=== PATIENT | female | born 1975 | race Caucasian/White ===

== ENCOUNTER 2017-11-14 07:14 | Day surgery (SDC) | payer MEDICARE, MEDICAID ==
[2017-11-14] MEDS ORDERED: Midazolam 1 MG/ML 2 ML SDV ONE (07:18)
[2017-11-14] MEDS ORDERED: fentaNYL 100 MCG/2 ML SDV ONE (07:18)
[2017-11-14] MEDS ORDERED: Propofol 200 MG/20 ML SDV ONE (07:18)
[2017-11-14] MEDS ORDERED: Dextrose 5%-Lactated Ringers 1,000 ML IV SCH (08:30)
[2017-11-14] MEDS ORDERED: Glycopyrrolate 0.2 MG/ML 2 ML SDV IVPUSH ONE (09:00)
[2017-11-14 11:16] VITALS: BP 128/84
--- NOTE | 2017-11-17 11:23 | OR ---
DATE OF PROCEDURE: 11/14/2017 PREOPERATIVE DIAGNOSIS: Substernal chest pain. POSTOPERATIVE DIAGNOSIS: Substernal chest pain associated with: 1. Small hiatal hernia with mild inflammation of esophagogastric junction. 2. Mild antral gastritis/duodenitis. OPERATIVE PROCEDURE: Esophagogastroduodenoscopy with: 1. Biopsies of esophagogastric junction with histologic evaluation. 2. Biopsies of antrum for CLOtest. ANESTHESIA: IV sedation. INDICATION FOR PROCEDURE: This is a 42-year-old presenting with some ongoing problems with substernal chest pain. Cardiac etiologies have been ruled out. The patient is to undergo an upper endoscopy at this time to see if there is anything in the way of upper GI findings to account for the patient's symptoms. Plan is to proceed with upper GI endoscopy with biopsies and/or dilation as indicated. Potential risks including bleeding and perforation were discussed, and the patient wishes to proceed. DETAILS OF PROCEDURE: The patient was taken to the operating room and placed in a left lateral decubitus position. IV sedation was administered, after which the upper GI endoscope was passed orally through the length of the esophagus into the stomach with retroflexion view of the fundus, thereafter through the pyloric channel and duodenum to the junction of the third and fourth portions. Findings included normal hypopharynx, larynx, and upper esophageal sphincter. At the EG junction, a small hiatal hernia was present. There was some quite mild inflammation present with the mucosa being slightly edematous and friable. No stricturing or gross evidence of neoplasia was seen within the stomach apart from the small hiatal hernia. The patient was noted to have a somewhat mild antral gastritis along with some reddening of the mucosa in patches within the duodenal bulb. No ulcers or erosions were seen in these areas, and at that point, the scope was then brought back into the antrum and biopsies obtained there for CLOtest for H. pylori. Multiple biopsies were obtained from the esophagogastric junction and sent for histologic evaluation. The scope was then withdrawn and the procedure concluded. The patient was taken to the recovery room in satisfactory condition. At this point, it would appear the patient does not have as much upper GI findings as would likely explain her symptoms. Given this, we will obtain a CCK-stimulated HIDA scan next week. In case the ultrasound is negative, we will see the patient after the HIDA scan has been completed, then develop a different plan from that point forward. Wilder Mccartney MD /[id number]
== END 2017-11-14 11:15 | disposition home or self-care (01) ==
LOC: JP.SDS 07:14
PROVIDERS: ATTEND Surgery
DX: K29.50 Unspecified chronic gastritis without bleeding (principal); K22.8 Other specified diseases of esophagus; K44.9 Diaphragmatic hernia without obstruction or gangrene; Z88.0 Allergy status to penicillin; Z88.8 Allergy status to other drugs, medicaments and biological substances; Z91.030 Bee allergy status
CPT/HCPCS: 43239; 87081; J2250; J2704; J3010; J7042; 88305; J3490

== ENCOUNTER 2017-12-02 05:22 | Day surgery (SDC) | payer MEDICARE, MEDICAID ==
[2017-12-02] MEDS ORDERED: Acetaminophen 500 MG Tab PO ONE (05:30)
[2017-12-02] MEDS ORDERED: Gabapentin 300 MG Cap PO ONE (05:30)
[2017-12-02] MEDS: Dextrose 5%-Lactated Ringers 1,000 ML IV SCH ×2 (06:17→18:42)
[2017-12-02] MEDS ORDERED: Bupivacaine 0.5%/EPINEPHrine 1:200,000 50 ML MDV ONE (06:52)
[2017-12-02] MEDS ORDERED: fentaNYL 250 MCG/5 ML SDV ONE ×2 (07:09→07:42)
[2017-12-02] MEDS ORDERED: Dexamethasone 4 MG/ML SDV ONE (07:10)
[2017-12-02] MEDS ORDERED: Ondansetron 4 MG/2 ML SDV ONE (07:10)
[2017-12-02] MEDS ORDERED: Succinylcholine 200 MG/10 ML MDV ONE (07:10)
[2017-12-02] MEDS ORDERED: Propofol 200 MG/20 ML SDV ONE (07:10)
[2017-12-02] MEDS ORDERED: Neostigmine Methylsulfate 1 MG/ML 5 ML Syringe ONE (07:10)
[2017-12-02] MEDS ORDERED: Rocuronium 50 MG/5 ML Vial ONE (07:10)
[2017-12-02] MEDS ORDERED: Glycopyrrolate 0.2 MG/ML 5 ML MDV ONE (07:10)
[2017-12-02] MEDS ORDERED: Ketamine 500 MG/5 ML MDV IV SCH (07:30)
[2017-12-02] MEDS ORDERED: HYDROmorphone/Normal Saline 15 MG/30 ML PCA IV PRN (08:15)
[2017-12-02] MEDS ORDERED: Naloxone 0.4 MG/ML SDV IV PRN (08:18)
[2017-12-02] MEDS ORDERED: Insulin Aspart 100 Units/ML 3 ML Pen SUBCUT ONE (08:45)
[2017-12-02] MEDS: Ondansetron 4 MG/2 ML SDV IVPUSH PRN ×4 (09:33→22:24)
[2017-12-02] MEDS ORDERED: 50% Dextrose in Water 50 ML Syringe IVPUSH PRN (09:49)
[2017-12-02] MEDS ORDERED: Glucose Gel 15 GM in 37.5 GM Tube PO PRN (09:49)
[2017-12-02] MEDS ORDERED: Glucagon,Human Recombinant 1 MG Vial IM PRN (09:49)
[2017-12-02] MEDS ORDERED: Acetaminophen/HYDROcodone 325-5 MG Tab PO PRN (09:50)
[2017-12-02] MEDS ORDERED: Cyclobenzaprine 10 MG Tab PO PRN (09:51)
[2017-12-02] MEDS: Levofloxacin/Dextrose 5%-Water 500 MG in Premix Bag 1 BAG IV ONE ×2 (10:13→11:05)
[2017-12-02] MEDS ORDERED: Pantoprazole 40 MG Vial IV SCH (11:00)
[2017-12-02] MEDS: Insulin Aspart 100 Units/ML 3 ML Pen SUBCUT PRN ×3 (11:45→22:15)
[2017-12-02] MEDS: buPROPion 150 MG Tab.ER PO SCH (11:46)
[2017-12-02] MEDS: Gabapentin 300 MG Cap PO SCH ×2 (14:02→22:14)
[2017-12-02] MEDS: metFORMIN 500 MG Tab.ER PO SCH (17:03)
[2017-12-02] MEDS ORDERED: Codeine/guaiFENesin 100mg-10 MG/5 ML Syrup 10 ML Cup PO PRN (20:23)
[2017-12-02] MEDS: Metoclopramide 10 MG/2 ML SDV IV SCH (20:40)
[2017-12-02] MEDS ORDERED: Non-Formulary Medication 1 Each (Metformin Hcl [Metformin Hcl Er] 500 MG) PO SCH (21:00)
[2017-12-03] MEDS: Acetaminophen/HYDROcodone 325-5 MG Tab PO PRN ×2 (02:39→07:21)
[2017-12-03] MEDS: Metoclopramide 10 MG/2 ML SDV IV SCH ×2 (02:39→08:45)
[2017-12-03] MEDS: Dextrose 5%-Lactated Ringers 1,000 ML IV SCH (04:46)
[2017-12-03] MEDS ORDERED: Levofloxacin/Dextrose 5%-Water 500 MG in Premix Bag 1 BAG IV SCH (06:00)
[2017-12-03 07:12] VITALS: BP 120/66
[2017-12-03] MEDS ORDERED: Ondansetron 4 MG Tab.DIS PO PRN (07:44)
[2017-12-03] MEDS: Gabapentin 300 MG Cap PO SCH (08:44)
[2017-12-03] MEDS: metFORMIN 500 MG Tab.ER PO SCH (08:44)
[2017-12-03] MEDS: buPROPion 150 MG Tab.ER PO SCH (08:45)
--- NOTE | 2017-12-03 11:21 | DISCH ---
ADMISSION DIAGNOSES: Cholelithiasis, obesity, gastroesophageal reflux disease, type 2 diabetes, obstructive sleep apnea on CPAP, dyslipidemia, depression and low back pain. DISCHARGE DIAGNOSES: Laparoscopic cholecystectomy, umbilical hernia repair, liver biopsy and biopsy of pericholecystic lymph nodes for biliary dyskinesia, fatty infiltrated liver, enlarged pericholecystic lymph nodes and umbilical hernia. Date of surgery 12/02/2017. HISTORY: Judith Hugo is a 42-year-old female with cholelithiasis and epigastric and right upper quadrant abdominal pain. After preoperative evaluation and discussion of possible risks and possible complications, she wished to proceed with surgical procedure. HOSPITAL COURSE: Judith had her surgery on 12/02/2017. She had no operative complications. On postop day 1, vital signs were stable, activity was good, and she was able to be discharged to home. PHYSICAL EXAMINATION: GENERAL: Judith Hugo is a pleasant 42-year-old female. VITAL SIGNS: Height is 5 feet 1 inch. Weight is 233 pounds. TPR is 98.3, 81, 16, blood pressure 120/66. HEENT: Negative. NECK: Supple. HEART: Regular rate and rhythm. LUNGS: Clear. ABDOMEN: Dressings dry and intact. HAL drain is draining a light pink serosanguineous drainage. This will be removed prior to discharge. Abdominal binder otherwise has been on. EXTREMITIES: SCDs are on. There is no peripheral edema. DISPOSITION: Discharged to home. CONDITION: Stable and improving. FOLLOWUP APPOINTMENTS: Lexy Parra PA-C, on 12/12/2017 at 10:00 a.m. HOME MEDICATIONS: [place] 5/325 mg 1-2 oral q.4 hours p.r.n. pain #40, milk of magnesia 30 mL 2 doses were sent home to take 1 now and repeat in a.m., Zofran ODT 4 mg sublingual q.4 hours p.r.n. nausea #30. She is to resume her home medications of Flexeril 10 mg 3 times a day for muscle spasms, Neurontin 600 mg oral daily, meloxicam 15 mg oral daily, naproxen 500 mg oral twice daily, omeprazole 20 mg twice daily, Zocor 5 mg oral at bedtime, bupropion, Wellbutrin XL 150 mg oral daily, glipizide 5 mg oral daily, hydroxyzine 25 mg oral 3 times a day p.r.n. anxiety, metformin 500 mg oral twice daily. DISCHARGE DIET: Usual diet as tolerated. Drink 8 to 10 glasses of water a day. ACTIVITY: After discharge as tolerated. No lifting greater than 10 pounds for 2 weeks[address]riving, do not drive on pain medication. Shower/bathing, may shower. DISCHARGE INSTRUCTIONS: Notify provider of fever, increased pain, nausea, or vomiting. Wound incision care, keep site clean and dry. Wear abdominal binder for 2 weeks and then as tolerated. Special instruction; use incentive spirometer 10 times every hour while awake.
--- NOTE | 2017-12-07 01:28 | OR ---
DATE OF PROCEDURE: 12/02/2017 PREOPERATIVE DIAGNOSIS: Biliary dyskinesia. POSTOPERATIVE DIAGNOSES: 1. Biliary dyskinesia. 2. Fatty infiltrated liver. 3. Large pericholecystic lymph node. 4. Umbilical hernia. PROCEDURE: Diagnostic laparoscopy with: 1. Laparoscopic cholecystectomy (50952). 2. Umbilical hernia repair (47025). 3. Low-Cut needle liver biopsy (29402). 4. Biopsies of peritoneal nodule adjacent to the gallbladder (likely a lymph node) (36121). ANESTHESIA: General. ASSISTANTS: Lexy Parra PA-C; and HITESH Yuan3. INDICATIONS: This is a 42-year-old female presenting with recurrent problems with epigastric and generalized upper abdominal pain radiating to the back, generally in the postprandial period. The patient underwent a CCK-stimulated HIDA scan last week, which showed a below-normal ejection fraction as well as causing reproduction of the symptoms with the CCK injection. Plan is to proceed with a laparoscopic cholecystectomy. Potential risks of the procedure including bleeding, infection, injury to the underlying viscera such as common bile duct, persistent symptoms postoperatively along with the remote possibility of cardiopulmonary, septic, or hemorrhagic complications leading to were discussed, and the patient wishes to proceed. DETAILS OF PROCEDURE: The patient was taken to the operating room, and after general endotracheal anesthesia was induced, the abdomen was prepped and draped. A transverse epigastric incision was made. The peritoneal cavity entered under direct vision with the Optiview trocar and inflated to 15 mmHg pressure with CO2. Laparoscope was then re- inserted. No underlying trocar insertion site injuries were seen. Following this, a 12 mm subumbilical trocar was placed. The patient was noted to have roughly 1 cm size umbilical hernia, and the trocar was easily passed through the center of the hernia to facilitate subsequent repair. The scope was then brought down into the subumbilical trocar site, and a single 5 mm right abdominal trocar was then placed. With the liver being retracted anteriorly, the gallbladder was then grasped. The patient was noted to have a nodular lesion in the peritoneal surface adjacent to the gallbladder, which likely appeared to be lymph node. But to rule out other pathology, this nodular lesion was excised. This measured around 1 cm in dimension. This was excised with Harmonic scalpel and delivered from the field. At this point, the patient was also noted to have a fatty liver which was suggested on the previous imaging, and to establish the extent of the pathology, Low-Cut needle biopsies obtained from the right lobe of the liver, and minimal bleeding from the biopsy site was controlled with electrocautery. At this point, the gallbladder was retracted anterolaterally. The gallbladder was distended and somewhat puentes in color, consistent with some chronic cholecystitis. There was also a fair bit of edema and thickening in the area of the gallbladder neck and cystohepatic triangle. Dissection began on the gallbladder neck and continued around the gallbladder neck cystic duct junction. Once that area was well delineated as was the adjacent cystic artery, both structures were clipped 3 times proximally and once distally and divided. The gallbladder was then dissected off the gallbladder bed using Harmonic scalpel and delivered through the epigastric trocar site. Inspection of the gallbladder field showed some sludge along with a cholesterolosis appearance of the gallbladder mucosa. At this point, no bleeding or bile leaks were seen. A drain was felt not to be necessary. The epigastric trocar then was used once again for the camera port, and the port at the umbilical site removed. The umbilical hernia was then closed at that level with passage of the 0 Vicryl sutures with laparoscopic suture passer orienting the closure in a transverse direction. Once these were in place, the remaining trocars were removed, and the peritoneal cavity was deflated. The fascia at the epigastric site was closed with 0 Vicryl stitch and the umbilical hernia site sutures were then tied. The skin at each of the incisions was then closed with some 4-0 Vicryl skin stitch. Dressing was applied. The patient was taken to the recovery room in satisfactory condition. There were no evident complications. Physician campaign assistant, Lexy Parra, played an essential role in assisting in this case, helping to position the patient, retract structures as needed, as well as suturing and cutting sutures when indicated. Her presence improved the patient's safety and decreased the operative time. Wilder Mccartney MD /[id number]
== END 2017-12-03 10:34 | disposition home or self-care (01) ==
LOC: JP.SDS 05:22 → JP.2SS 08:20 → JP.SDS 12-03 10:34
PROVIDERS: ATTEND Surgery
DX: K81.1 Chronic cholecystitis (principal); K76.0 Fatty (change of) liver, not elsewhere classified; G47.33 Obstructive sleep apnea (adult) (pediatric); F32.9 Major depressive disorder, single episode, unspecified; E11.9 Type 2 diabetes mellitus without complications; E66.01 Morbid (severe) obesity due to excess calories; K21.9 Gastro-esophageal reflux disease without esophagitis; E78.5 Hyperlipidemia, unspecified; Z88.0 Allergy status to penicillin; Z91.030 Bee allergy status; Z88.8 Allergy status to other drugs, medicaments and biological substances; Z99.89 Dependence on other enabling machines and devices; Z79.84 Long term (current) use of oral hypoglycemic drugs; Z79.899 Other long term (current) drug therapy; Z68.41 Body mass index [BMI] 40.0-44.9, adult
CPT/HCPCS: 12011; 36415; 38589; 47001; 47562; 49652; 80053; 82247; 82962; 83735; 84075; 84100; 85027; 88304; 88305; 88307; 88313; 94762; A9270; C9113; J0330; J1100; J1170; J1956; J2405; J2704; J2710; J2765; J3010; J7030; J7042

== ENCOUNTER 2017-12-07 23:47 | Emergency (ER) | payer MEDICARE, MEDICAID ==
[2017-12-08] MEDS ORDERED: HYDROmorphone 0.5 MG/0.5 ML Syringe IVPUSH ONE ×2 (00:03→02:05)
--- NOTE | 2017-12-08 00:29 | EDM.PDOC ---
ED HPI GENERAL MEDICAL PROBLEM - General Chief Complaint: Abdominal Pain Stated Complaint: PAIN AFTER SURGERY 12/02/17 Time Seen by Provider: 12/08/17 00:24 Source of Information: Reports: Patient, Family History Limitations: Reports: No Limitations - History of Present Illness INITIAL COMMENTS - FREE TEXT/NARRATIVE: 42-year-old patient who had a cholecystectomy and hernia repair 5 days ago was discharged from the hospital the day after surgery. She had been doing well but had a sudden increase in pain this afternoon to the point where she was frantic , miserable, had pleuritic pain in the right abdomen with breathing and the pain was uncontrolled with her oral pain medications. No fevers or chills. Her bowels are moving. Onset: Gradual Location: Reports: Abdomen Quality: Reports: Sharp, Other (Cramping, pressure) Severity: Severe Associated Symptoms: Denies: Chest Pain, Cough, Shortness of Breath (Although she has pleuritic pain with breathing) Abdominal Pain Score (Numeric/FACES): 8 - Related Data Allergies Allergy/AdvReac Type Severity Reaction Status Date / Time bee venom protein (honey bee) Allergy Anaphylactic Verified 12/02/17 06:21 Shock Penicillins Allergy Rash Verified 12/02/17 06:21 [facility] AdvReac Stomach Verified 12/02/17 06:21 Upset Home Meds: Home Meds Gabapentin [Neurontin] 600 mg PO DAILY 11/02/16 [History] Omeprazole 20 mg PO BID 11/02/16 [History] Simvastatin [Zocor] 5 mg PO BEDTIME 11/02/16 [History] buPROPion HCl [Wellbutrin Xl] 150 mg PO DAILY 11/02/16 [History] Cyclobenzaprine HCl 10 mg PO TID PRN 10/28/17 [History] Meloxicam 15 mg PO DAILY 10/28/17 [History] Naproxen 500 mg PO BID 10/28/17 [History] Ondansetron [Zofran] 4 mg PO Q8H PRN 10/28/17 [History] glipiZIDE [Glipizide ER] 5 mg PO DAILY 10/28/17 [History] hydrOXYzine Pamoate [Hydroxyzine Pamoate] 25 mg PO TID PRN 10/28/17 [History] metFORMIN HCl [Metformin HCl ER] 500 mg PO BID 12/02/17 [History] Acetaminophen/HYDROcodone [[place] 325-5 MG] 1 - 2 tab PO Q4H PRN #40 tablet 12/03 [Rx] Magnesium Hydroxide [Milk of Magnesia] 30 ml PO DAILY PRN #2 ml 12/03/17 [Rx] Ondansetron [Zofran ODT] 4 mg PO Q4H PRN #30 tab.dis 12/03/17 [Rx] Past Medical History HEENT History: Reports: Impaired Vision Cardiovascular History: Reports: High Cholesterol Respiratory History: Reports: Asthma, Sleep Apnea Gastrointestinal History: Reports: GERD Genitourinary History: Reports: Renal Calculus Musculoskeletal History: Reports: Back Pain, Chronic, Osteoarthritis Neurological History: Reports: Head Trauma Psychiatric History: Reports: Anxiety, Depression Endocrine/Metabolic History: Reports: Diabetes, Type II, Obesity/BMI 30+ - Infectious Disease History Infectious Disease History: Reports: Chicken Pox, Measles - Past Surgical History HEENT Surgical History: Reports: None Cardiovascular Surgical History: Reports: None Respiratory Surgical History: Reports: None GI Surgical History: Reports: Appendectomy, Cholecystectomy, Hernia, Abdominal Female Surgical History: Reports: Lithotripsy/ESWL Endocrine Surgical History: Reports: None Neurological Surgical History: Reports: None Musculoskeletal Surgical History: Reports: Arthroscopic Knee Social & Family History - Family History Family Medical History: Noncontributory - Tobacco Use Smoking Status *Q: Former Smoker Years of Tobacco use: 20 Packs/Tins Daily: 1 Used Tobacco, but Quit: Yes Month Tobacco Last Used: 1992 Second Hand Smoke Exposure: No - Caffeine Use Caffeine Use: Reports: Coffee, Soda Other Caffeine Use: 2 cups - Alcohol Use Days Per Week of Alcohol Use: 0 - Recreational Drug Use Recreational Drug Use: No ED ROS GENERAL - Review of Systems Review Of Systems: See Below Constitutional: Denies: Fever, Chills HEENT: Reports: No Symptoms Respiratory: Reports: Pleuritic Chest Pain GI/Abdominal: Reports: Abdominal Pain. Denies: Constipation, Vomiting Skin: Reports: No Symptoms Neurological: Reports: No Symptoms ED EXAM, GI/ABD - Physical Exam Exam: See Below Exam Limited By: No Limitations General Appearance: Alert, Moderate Distress Eyes: Bilateral: Normal Appearance (No jaundice) Respiratory/Chest: No Respiratory Distress, Lungs Clear Cardiovascular: Regular Rate, Rhythm GI/Abdominal Exam: Normal Bowel Sounds, Soft, Other (Tender with palpation in the right upper quadrant, incisions look excellent) Neurological: Alert, Oriented Psychiatric: Anxious Skin Exam: Warm, Dry Course - Vital Signs Last Recorded V/S: Last Vital Signs Temp 97.3 F 12/07/17 23:53 Pulse 83 12/08/17 01:46 Resp 18 12/08/17 01:46 BP 149/80 H 12/08/17 01:46 Pulse Ox 97 12/08/17 01:46 - Orders/Labs/Meds Orders: Active Orders 24 hr Category Date Time Status Abdomen Pelvis w Cont [CT] Stat Exams 12/08/17 00:32 Taken Labs: Laboratory Tests 12/08/17 12/08/17 Range/Units 00:10 00:10 WBC 9.6 (4.5-11.0) K/uL RBC 4.43 (3.30-5.50) M/uL Hgb 12.3 (12.0-15.0) g/dL Hct 36.6 (36.0-48.0) % MCV 83 (80-98) fL MCH 28 (27-31) pg MCHC 34 (32-36) % Plt Count 293 (150-400) K/uL Neut % (Auto) 66 (36-66) % Lymph % (Auto) 25 (24-44) % [place] % (Auto) 6 (2-6) % Eos % (Auto) 2 (2-4) % Baso % (Auto) 0 (0-1) % Sodium 141 (140-148) mmol/L Potassium 4.3 (3.6-5.2) mmol/L Chloride 103 (100-108) mmol/L Carbon Dioxide 28 (21-32) mmol/L Anion Gap 10.4 (5.0-14.0) mmol/L BUN 8 D (7-18) mg/dL Creatinine 0.8 (0.6-1.0) mg/dL Est Cr Clr Drug Dosing 71.71 mL/min Estimated GFR (MDRD) > 60 (>60) Glucose 132 H (74-106) mg/dL Calcium 9.1 (8.5-10.1) mg/dL Total Bilirubin 0.4 (0.2-1.0) mg/dL AST 17 (15-37) U/L ALT 22 (12-78) U/L Alkaline Phosphatase 110 (46-116) U/L Total Protein 6.6 (6.4-8.2) g/dL Albumin 3.0 L (3.4-5.0) g/dL Globulin 3.6 H (2.3-3.5) g/dL Albumin/Globulin Ratio 0.8 L (1.2-2.2) Meds: Medications Discontinued Medications Generic Name Dose Route Start Last Admin Trade Name Yarely PRN Reason Stop Dose Admin Hydromorphone HCl 0.5 mg 12/08/17 00:03 12/08/17 00:17 Dilaudid IVPUSH 12/08/17 00:04 0.5 mg ONETIME ONE Administration Hydromorphone HCl 0.5 mg 12/08/17 02:05 12/08/17 02:21 Dilaudid IVPUSH 12/08/17 02:06 0.5 mg ONETIME ONE Administration Sodium Chloride 1,000 mls @ 500 mls/hr 12/08/17 00:45 12/08/17 01:03 Normal Saline IV 500 mls/hr ASDIRECTED MANFRED Administration Sodium Chloride 85 mls @ 4 mls/sec 12/08/17 00:39 12/08/17 00:53 Normal Saline IV 12/08/17 00:40 4 mls/sec ASDIRECTED STA Administration Iopamidol 150 ml 12/08/17 00:39 12/08/17 00:53 Isovue-300 (61%) IV 12/08/17 00:40 150 ml . DIRECTED STA Administration - Re-Assessments/Exams Free Text/Narrative Re-Assessment/Exam: 12/08/17 00:31 An IV was started and the patient was given 0.5 mg of Dilaudid IV. This markedly reduced her pain. CBC and CMP were obtained with the intention of an IV contrast enhanced abdomen and pelvis CT. 12/08/17 01:13 Over the course of the next hour her pain continued to improve and almost resolved completely. CBC and CMP were normal. 12/08/17 02:14 CT scan was also negative except for normal postoperative changes. The hydrocodone was discarded and a prescription for 20 2 mg Dilaudid's along with 20 10 mg Flexeril pills were given to the patient which she will fill tomorrow. She has a follow-up appointment with surgery next week, she can return sooner if worsening. Departure - Departure Time of Disposition: 02:41 Disposition: Home, Self-Care 01 Condition: Good Clinical Impression: Abdominal pain Qualifiers: Abdominal location: right upper quadrant Qualified Code(s): R10.11 - Right upper quadrant pain - Discharge Information Instructions: Abdominal Pain, Adult, [id number] Referrals: Houston Ram PA-C [Primary Care Provider] - Forms: ED Department Discharge Care Plan Goals: Fill prescriptions and use as prescribed if needed. Follow up with surgery as scheduled or return to ER sooner if worsening despite treatment with medication. - My Orders Last 24 Hours: My Active Orders 12/08/17 00:32 Abdomen Pelvis w Cont [CT] Stat - Assessment/Plan Last 24 Hours: My Active Orders 12/08/17 00:32 Abdomen Pelvis w Cont [CT] Stat
[2017-12-08] MEDS ORDERED: Iopamidol 612 MG/ML 150 ML Bottle IV STA (00:39)
[2017-12-08] MEDS ORDERED: Sodium Chloride 0.9% 1,000 ML IV SCH (00:45)
[2017-12-08 01:46] VITALS: BP 149/80
== END 2017-12-08 02:44 | disposition home or self-care (01) ==
LOC: JP.ED 23:47
DX: R10.11 Right upper quadrant pain (principal); E11.9 Type 2 diabetes mellitus without complications; E66.9 Obesity, unspecified; E78.00 Pure hypercholesterolemia, unspecified; Z87.891 Personal history of nicotine dependence; Z88.8 Allergy status to other drugs, medicaments and biological substances; Z88.0 Allergy status to penicillin; Z91.030 Bee allergy status; Z79.899 Other long term (current) drug therapy; Z79.84 Long term (current) use of oral hypoglycemic drugs
CPT/HCPCS: 36415; 74177; 80053; 85025; 96361; 96374; 96376; 99284; J1170; J7030; J7040

== ENCOUNTER 2018-07-10 21:34 | Emergency (ER) | payer MEDICARE, MEDICAID ==
[2018-07-10 21:57] VITALS: BP 209/103
--- NOTE | 2018-07-10 23:12 | EDM.PDOC ---
ED HPI GENERAL MEDICAL PROBLEM - General Chief Complaint: General Stated Complaint: PAIN AROUND HERNIA AREA Time Seen by Provider: 07/10/18 22:21 Source of Information: Reports: Patient History Limitations: Reports: No Limitations - History of Present Illness INITIAL COMMENTS - FREE TEXT/NARRATIVE: this lady has had pain around the umbilicus for the past year ever since umbilical hernia repair. Gradually worse. today sharp pain associated with movement. Vomited once 2 days ago. NOne today. Abdominal Pain Score (Numeric/FACES): 6 - Related Data Allergies Allergy/AdvReac Type Severity Reaction Status Date / Time bee venom protein (honey bee) Allergy Anaphylactic Verified 12/02/17 06:21 Shock Penicillins Allergy Rash Verified 12/02/17 06:21 dulaglutide [From [facility]ul[facility]] AdvReac Stomach Verified 12/02/17 06:21 Upset Home Meds: Home Meds Gabapentin [Neurontin] 600 mg PO DAILY 11/02/16 [History] Omeprazole 20 mg PO BID 11/02/16 [History] Simvastatin [Zocor] 5 mg PO BEDTIME 11/02/16 [History] buPROPion HCl [Wellbutrin Xl] 150 mg PO DAILY 11/02/16 [History] Cyclobenzaprine HCl 10 mg PO TID PRN 10/28/17 [History] Meloxicam 15 mg PO DAILY 10/28/17 [History] Naproxen 500 mg PO BID 10/28/17 [History] Ondansetron [Zofran] 4 mg PO Q8H PRN 10/28/17 [History] glipiZIDE [Glipizide ER] 5 mg PO DAILY 10/28/17 [History] hydrOXYzine pamoate [Hydroxyzine Pamoate] 25 mg PO TID PRN 10/28/17 [History] metFORMIN HCl [Metformin HCl ER] 500 mg PO BID 12/02/17 [History] Acetaminophen/HYDROcodone [[place] 325-5 MG] 1 - 2 tab PO Q4H PRN #40 tablet 12/03 [Rx] Magnesium Hydroxide [Milk of Magnesia] 30 ml PO DAILY PRN #2 ml 12/03/17 [Rx] Ondansetron [Zofran ODT] 4 mg PO Q4H PRN #30 tab.dis 12/03/17 [Rx] Past Medical History HEENT History: Reports: Impaired Vision Cardiovascular History: Reports: High Cholesterol Respiratory History: Reports: Asthma, Sleep Apnea Gastrointestinal History: Reports: GERD Genitourinary History: Reports: Renal Calculus Musculoskeletal History: Reports: Back Pain, Chronic, Osteoarthritis Neurological History: Reports: Head Trauma Psychiatric History: Reports: Anxiety, Depression Endocrine/Metabolic History: Reports: Diabetes, Type II, Obesity/BMI 30+ - Infectious Disease History Infectious Disease History: Reports: Chicken Pox, Measles - Past Surgical History HEENT Surgical History: Reports: None Cardiovascular Surgical History: Reports: None Respiratory Surgical History: Reports: None GI Surgical History: Reports: Appendectomy, Cholecystectomy, Hernia, Abdominal Female Surgical History: Reports: Lithotripsy/ESWL Endocrine Surgical History: Reports: None Neurological Surgical History: Reports: None Musculoskeletal Surgical History: Reports: Arthroscopic Knee Social & Family History - Family History Family Medical History: Noncontributory - Tobacco Use Smoking Status *Q: Never Smoker - Caffeine Use Caffeine Use: Reports: Coffee, Soda Other Caffeine Use: 2 cups - Recreational Drug Use Recreational Drug Use: No ED ROS GENERAL - Review of Systems Review Of Systems: ROS reveals no pertinent complaints other than HPI. ED EXAM, GENERAL - Physical Exam Exam: See Below Exam Limited By: No Limitations General Appearance: Alert, No Apparent Distress, Obese Eye Exam: Bilateral Eye: Normal Inspection Respiratory/Chest: No Respiratory Distress, Lungs Clear Cardiovascular: Regular Rate, Rhythm GI/Abdominal: Normal Bowel Sounds, Soft, Other (point tenderness to umbilicus but no mass palpable.) Course - Vital Signs Last Recorded V/S: Last Vital Signs Temp 37.7 C 07/10/18 22:14 Pulse 104 H 07/10/18 22:14 Resp 18 07/10/18 22:14 BP 209/103 H 07/10/18 22:14 Pulse Ox 99 07/10/18 22:14 Departure - Departure Time of Disposition: 23:09 Disposition: Home, Self-Care 01 Condition: Fair Clinical Impression: H/O umbilical hernia repair - Discharge Information Referrals: Ann Watson PA-C [Primary Care Provider] - Additional Instructions: clinic should call you on Friday about an appointment to see Dr Mccartney. Avoid any strenuous activities over the weekend. Use tylenol for pain. Return to the ER if you have persistent vomiting and abdominal pain all over.
== END 2018-07-10 23:30 | disposition home or self-care (01) ==
LOC: JP.ED 21:34
DX: R10.33 Periumbilical pain (principal); E78.00 Pure hypercholesterolemia, unspecified; J45.909 Unspecified asthma, uncomplicated; K21.9 Gastro-esophageal reflux disease without esophagitis; F41.9 Anxiety disorder, unspecified; F32.9 Major depressive disorder, single episode, unspecified; E11.9 Type 2 diabetes mellitus without complications; Z79.899 Other long term (current) drug therapy; Z98.890 Other specified postprocedural states; Z79.84 Long term (current) use of oral hypoglycemic drugs
CPT/HCPCS: 99284

== ENCOUNTER 2018-07-21 07:26 | Inpatient (IN) | payer MEDICARE, MEDICAID ==
[~2018-07-21 07:26] MED LIST: Bupivacaine 0.5%/EPINEPHrine 1:200,000 50 ML MDV ONE; Meropenem 500 MG SDV ONE
[2018-07-21] MEDS ORDERED: Celecoxib 200 MG Cap PO ONE (07:30)
[2018-07-21] MEDS ORDERED: Acetaminophen 500 MG Tab PO ONE (07:30)
[2018-07-21] MEDS ORDERED: Gabapentin 300 MG Cap PO ONE (07:30)
[2018-07-21] MEDS: Dextrose 5%-Lactated Ringers 1,000 ML IV SCH ×3 (08:00→20:32)
[2018-07-21] MEDS ORDERED: fentaNYL 250 MCG/5 ML SDV ONE (08:03)
[2018-07-21] MEDS ORDERED: Ondansetron 4 MG/2 ML SDV ONE (08:04)
[2018-07-21] MEDS ORDERED: Midazolam 1 MG/ML 2 ML SDV ONE (08:04)
[2018-07-21] MEDS ORDERED: Rocuronium 50 MG/5 ML Vial ONE (08:04)
[2018-07-21] MEDS ORDERED: Glycopyrrolate 0.2 MG/ML 5 ML MDV ONE (08:04)
[2018-07-21] MEDS ORDERED: Neostigmine Methylsulfate 1 MG/ML 5 ML Syringe ONE (08:04)
[2018-07-21] MEDS ORDERED: Propofol 200 MG/20 ML SDV ONE (08:04)
[2018-07-21] MEDS ORDERED: Dexamethasone 4 MG/ML SDV ONE (08:04)
[2018-07-21] MEDS ORDERED: ceFAZolin 2 GM in Sodium Chloride 0.9% 50 ML IV ONE (09:00)
[2018-07-21] MEDS ORDERED: Ropivacaine 53 ML, Dexamethasone 8 MG, EPINEPHrine 0.4 MG, Sodium Chloride 0.9% 24.6 ML NERVRT SCH ×4 (09:15)
[2018-07-21] MEDS ORDERED: Ketamine 500 MG/5 ML MDV IV SCH (09:15)
[2018-07-21] MEDS ORDERED: Ketorolac 60 MG/2 ML SDV ONE (10:07)
[2018-07-21] MEDS ORDERED: Linezolid 200 MG/100 ML Bag IRR ONE (10:15)
[2018-07-21] MEDS ORDERED: fentaNYL 100 MCG/2 ML SDV IVPUSH ONE (10:43)
[2018-07-21] MEDS ORDERED: Insulin Aspart 100 Units/ML 3 ML Pen SUBCUT ONE (10:44)
[2018-07-21] MEDS ORDERED: 50% Dextrose in Water 50 ML Syringe IVPUSH PRN (12:14)
[2018-07-21] MEDS ORDERED: Glucose Gel 15 GM in 37.5 GM Tube PO PRN (12:14)
[2018-07-21] MEDS ORDERED: Glucagon,Human Recombinant 1 MG Vial IM PRN (12:14)
[2018-07-21] MEDS ORDERED: Ondansetron 4 MG/2 ML SDV IVPUSH PRN (12:30)
[2018-07-21] MEDS ORDERED: Methocarbamol 500 MG Tab PO PRN (12:31)
[2018-07-21] MEDS ORDERED: hydrOXYzine HCl 25 MG Tab PO PRN (12:31)
[2018-07-21] MEDS: Acetaminophen/oxyCODONE 325-5 MG Tab PO PRN ×3 (12:41→22:38)
[2018-07-21] MEDS: buPROPion 150 MG Tab.ER PO SCH (14:24)
[2018-07-21] MEDS: Pantoprazole 40 MG Tab.CR PO SCH (14:24)
[2018-07-21] MEDS: Gabapentin 300 MG Cap PO SCH ×2 (14:24→20:34)
[2018-07-21] MEDS: glipiZIDE 5 MG Tab PO SCH (14:24)
[2018-07-21] MEDS: ceFAZolin 2 GM in Sodium Chloride 0.9% 50 ML IV SCH ×2 (15:11→23:46)
[2018-07-21] MEDS: metFORMIN 500 MG Tab.ER PO SCH (16:36)
[2018-07-21] MEDS: Insulin Aspart 100 Units/ML 3 ML Pen SUBCUT PRN ×2 (16:36→21:12)
[2018-07-21] MEDS: Docusate Sodium 100 MG Cap PO SCH (20:34)
[2018-07-21] MEDS ORDERED: Benzocaine/Cetylpyridinium/Menthol Lozenge MUCMEM PRN (21:18)
[2018-07-22] MEDS: Acetaminophen/oxyCODONE 325-5 MG Tab PO PRN ×2 (04:30→08:16)
[2018-07-22] MEDS: Dextrose 5%-Lactated Ringers 1,000 ML IV SCH (05:08)
[2018-07-22 06:57] VITALS: BP 125/65
[2018-07-22] MEDS: Pantoprazole 40 MG Tab.CR PO SCH (07:05)
[2018-07-22] MEDS: ceFAZolin 2 GM in Sodium Chloride 0.9% 50 ML IV SCH (07:15)
[2018-07-22] MEDS ORDERED: Magnesium Hydroxide 400 MG/5 ML Susp 30 ML Cup PO PRN (07:31)
[2018-07-22] MEDS: glipiZIDE 5 MG Tab PO SCH (08:11)
[2018-07-22] MEDS: metFORMIN 500 MG Tab.ER PO SCH (08:11)
[2018-07-22] MEDS: Docusate Sodium 100 MG Cap PO SCH (08:11)
[2018-07-22] MEDS: buPROPion 150 MG Tab.ER PO SCH (08:12)
[2018-07-22] MEDS: Gabapentin 300 MG Cap PO SCH (08:12)
[2018-07-22] MEDS ORDERED: glipiZIDE 5 MG Tab.ER PO SCH (09:00)
[2018-07-22] MEDS ORDERED: Aspirin 81 MG Tab.EC PO SCH (09:00)
--- NOTE | 2018-07-22 13:27 | DISCH ---
FINAL DIAGNOSES: 1. Recurrent incarcerated umbilical hernia. 2. Extensive intraabdominal adhesions. SECONDARY DIAGNOSES: 1. Gastroesophageal reflux disease. 2. Type 2 diabetes mellitus. 3. Morbid obesity. 4. Obstructive sleep apnea, on CPAP. 5. Hyperlipidemia. OPERATIVE PROCEDURES: Done on 07/21/2018, diagnostic laparoscopy with; 1. Repair of recurrent incarcerated umbilical hernia with mesh. 2. Placement of Vicryl mesh to limit recurrent adhesion formation. HOSPITAL COURSE: This is a 43-year-old presenting with a recurrent umbilical hernia. On the day of admission, the patient underwent laparoscopic repair of this with mesh. There was quite a bit in the way of adhesions and to minimize recurrent adhesion formation, she had some Vicryl mesh placed for the pelvic and abdominal montoya to displace viscera from those surfaces. Postoperatively, she has done well. No major problems have been noted overnight. She will be discharged home on her usual medications, plus Percocet 5/325 one or two tabs q.4 hours p.r.n. pain. She will also be sent home with two doses of milk of magnesia to take on a p.r.n. basis and instructed that she can take ibuprofen in addition to that. She will be instructed to maintain pressure over the umbilical hernia repair site, and followup with Dr. Mccartney at [facility] on 07/29/2018.
--- NOTE | 2018-07-29 13:51 | OR ---
DATE OF PROCEDURE: 07/21/2018 PREOPERATIVE DIAGNOSIS: Recurrent incarcerated umbilical hernia. POSTOPERATIVE DIAGNOSES: 1. Recurrent incarcerated umbilical hernia. 2. Extensive intraabdominal adhesions. OPERATIVE PROCEDURES: Diagnostic laparoscopy with: 1. Repair of recurrent incarcerated umbilical hernia with mesh ([id number]). 2. Placement of Vicryl mesh to displace pelvic abdominal wall from underlying viscera to reduce recurrent adhesion formation ([id number]). ANESTHESIA: General. INDICATIONS FOR PROCEDURE: This is a 43-year-old female recently status post cholecystectomy. At that time, she was noted to have an umbilical hernia, which was repaired. This has now recurred and is not entirely reducible. Plan is to proceed with repair of this using a laparoscopic approach with mesh. Potential risks including bleeding, infection, injury to underlying viscera, possible recurrence of the hernia, problems with mesh becoming infected were all reviewed, and the patient wishes to proceed. DETAILS OF PROCEDURE: The patient was taken to the operating room after general endotracheal anesthesia was induced. The abdomen was prepped and draped. Bruner catheter was inserted, which we removed at the end of the procedure. In the left lateral abdomen, a transverse incision was made and peritoneal cavity entered under direct vision with Optiview trocar and inflated to 15 mmHg pressure with CO2. Transverse abdominis plane blocks were then placed. All the trocars in this case to be placed on the left side and so posttussively the transverse abdominis plane block injections were placed on the left with direct visualization of the needle on the correct plane and one in more subcostal area and one in the mid to lower abdomen. The final trocars were placed in the left lower quadrant and left upper quadrant. The patient was noted to have some incarcerated omentum within the hernia. This was reduced and then reflected downward. At that point, the patient was noted to have quite a bit in the way of adhesions between the mid and lower abdomen and underlying omentum and in one case the transverse colon superiorly and small bowel inferiorly. These were taken down with a combination of Harmonic scalpel and sharp dissection. At that point, a 15 x 20 cm Ventralex hernia mesh was selected. Sutures were placed on the polypropylene on the long axis of the mesh, which was then soaked in antibiotic saline solution and placed into the intraperitoneal location. Three small stab wounds were placed, one superior to the umbilicus and one inferior where the suture was pulled up and one adjacent to the umbilicus where the balloon catheter was pulled up. These were all sequentially pulled up thus fixing the mesh in general position, catheter inflated and bringing the mesh up against the abdominal wall. Mesh was then affixed circumferentially, with two layers of absorbable tacking screws. The balloon catheter was then deflated and removed. Mesh was felt to be widely covering the area of the hernia and good fixation was confirmed. The patient was felt to be high risk for recurrent adhesion formation between pelvic and abdominal wall and the area of the mesh placement and the underlying viscera. Given this, Vicryl mesh was placed, this being a 12 inch piece of mesh and position to be in the area of the bladder in the midline along the pelvic sidewalls, and up against the abdominal wall including the area of the mesh placement. These trocars were sequentially removed. The fascia at the 12 mm site was closed with 0 Vicryl stitch and the skin at each incision with a 4-0 Vicryl skin stitch. Dressing was applied. The patient taken to the recovery room in satisfactory condition. No other complications. Wilder Mccartney MD /[id number]
== END 2018-07-22 09:35 | disposition home or self-care (01) | DRG 336 ==
LOC: JP.SDS 07:26 → JP.MS 07:26 → EDSTATUS 11:30
PROVIDERS: ADMIT Surgery; ATTEND Surgery
PROC: 0WUF4JZ Supplement Abdominal Wall with Synthetic Substitute, Percutaneous Endoscopic Approach (ICD-10-PCS; principal; 2018-07-21)
PROC: 0DNU4ZZ Release Omentum, Percutaneous Endoscopic Approach (ICD-10-PCS; 2018-07-21)
PROC: 0DN84ZZ Release Small Intestine, Percutaneous Endoscopic Approach (ICD-10-PCS; 2018-07-21)
PROC: 0DNL4ZZ Release Transverse Colon, Percutaneous Endoscopic Approach (ICD-10-PCS; 2018-07-21)
PROC: 0DNW4ZZ Release Peritoneum, Percutaneous Endoscopic Approach (ICD-10-PCS; 2018-07-21)
PROC: 3E0M45Z Introduction of Adhesion Barrier into Peritoneal Cavity, Percutaneous Endoscopic Approach (ICD-10-PCS; 2018-07-21)
PROC: 3E0T3BZ Introduction of Anesthetic Agent into Peripheral Nerves and Plexi, Percutaneous Approach (ICD-10-PCS; 2018-07-21)
DX: K42.0 Umbilical hernia with obstruction, without gangrene (principal); Z68.41 Body mass index [BMI] 40.0-44.9, adult; K66.0 Peritoneal adhesions (postprocedural) (postinfection); K21.9 Gastro-esophageal reflux disease without esophagitis; E11.9 Type 2 diabetes mellitus without complications; Z79.84 Long term (current) use of oral hypoglycemic drugs; G47.33 Obstructive sleep apnea (adult) (pediatric); Z99.89 Dependence on other enabling machines and devices; E78.5 Hyperlipidemia, unspecified; E66.01 Morbid (severe) obesity due to excess calories; F32.9 Major depressive disorder, single episode, unspecified; Z79.82 Long term (current) use of aspirin; Z87.891 Personal history of nicotine dependence; Z91.030 Bee allergy status; Z88.0 Allergy status to penicillin; Z88.8 Allergy status to other drugs, medicaments and biological substances
CPT/HCPCS: 36415; 80048; 81025; 82962; 83735; 84100; 88302; 94762; A9270-GY; C1781; J0171; J0690; J1100; J1885; J2020; J2185; J2250; J2405; J2704; J2710; J2795; J3010; J3490; J7042; J7050

== ENCOUNTER 2019-03-30 19:38 | Emergency (ER) | payer MEDICARE, MEDICAID ==
[2019-03-30 20:07] VITALS: BP 190/107
[2019-03-30] MEDS ORDERED: Sodium Chloride 0.9% 1,000 ML IV SCH ×2 (20:45→21:30)
--- NOTE | 2019-03-30 20:45 | EDM.PDOC ---
ED HPI GENERAL MEDICAL PROBLEM - General Chief Complaint: Allergic Reaction Stated Complaint: POSSIBLE REACTION TO MEDS Time Seen by Provider: 03/30/19 20:41 Source of Information: Reports: Patient History Limitations: Reports: No Limitations - History of Present Illness INITIAL COMMENTS - FREE TEXT/NARRATIVE: pt arrived with a fever and a rash on both legs. She did take one dose of bactrinm and the rash appeared about 2 hours later. Onset: Today, Sudden, Other (pt has not been feeling well for several days. ) Duration: Hour(s): Location: Reports: Lower Extremity, Left, Lower Extremity, Right, Other ( this is very itchy. She also does have a high fever. ) Quality: Reports: Sharp, Stabbing Associated Symptoms: Reports: Fever/Chills, Loss of Appetite, Weakness Left Lower Abdomen Pain Score (Numeric/FACES): 8 - Related Data Allergies Allergy/AdvReac Type Severity Reaction Status Date / Time bee venom protein (honey bee) Allergy Severe Anaphylactic Verified 03/30/19 20: 02 Shock Penicillins Allergy Rash Verified 03/30/19 20:02 Sulfa (Sulfonamide Allergy Rash Verified 03/30/19 20:02 Antibiotics) dulaglutide [[facility] [employer]] AdvReac Stomach Verified 03/30/19 20:02 Upset Home Meds: Home Meds Gabapentin [Neurontin] 600 mg PO TID 11/02/16 [History] Simvastatin [Zocor] 5 mg PO BEDTIME 11/02/16 [History] buPROPion HCl [Wellbutrin Xl] 300 mg PO DAILY 11/02/16 [History] Cyclobenzaprine HCl 10 mg PO TID PRN 10/28/17 [History] hydrOXYzine pamoate [Hydroxyzine Pamoate] 25 mg PO TID PRN 10/28/17 [History] metFORMIN HCl [Metformin ER Osmotic] 500 mg PO BID 12/02/17 [History] Aspirin [Low Dose Aspirin EC] 81 mg PO DAILY 07/17/18 [History] Docusate Sodium [Colace] 100 mg PO BID PRN 07/17/18 [History] Acetaminophen [Tylenol Extra Strength] 1,000 mg PO BID 07/21/18 [History] Methocarbamol 500 mg PO TID 07/21/18 [History] glipiZIDE [Glucotrol] 5 mg PO DAILY 07/21/18 [History] Past Medical History HEENT History: Reports: Impaired Vision Cardiovascular History: Reports: High Cholesterol Respiratory History: Reports: Asthma, Sleep Apnea Gastrointestinal History: Reports: Cholelithiasis, GERD Genitourinary History: Reports: Renal Calculus Musculoskeletal History: Reports: Back Pain, Chronic, Osteoarthritis Neurological History: Reports: Concussion, Head Trauma Psychiatric History: Reports: Anxiety, Depression Endocrine/Metabolic History: Reports: Diabetes, Type II, Obesity/BMI 30+ - Infectious Disease History Infectious Disease History: Reports: Chicken Pox - Past Surgical History Head Surgeries/Procedures: Reports: None HEENT Surgical History: Reports: None Cardiovascular Surgical History: Reports: None Respiratory Surgical History: Reports: None GI Surgical History: Reports: Appendectomy, Cholecystectomy, EGD, Hernia, Abdominal Female Surgical History: Reports: Lithotripsy/ESWL Endocrine Surgical History: Reports: None Neurological Surgical History: Reports: None Musculoskeletal Surgical History: Reports: Arthroscopic Knee Dermatological Surgical History: Reports: None Social & Family History - Family History Family Medical History: Noncontributory - Tobacco Use Smoking Status *Q: Former Smoker Used Tobacco, but Quit: Yes Month/Year Tobacco Last Used: 2008 - Caffeine Use Caffeine Use: Reports: Coffee, Soda Other Caffeine Use: 2 cups - Recreational Drug Use Recreational Drug Use: No ED ROS ALLERGIC REACTION - Review of Systems Review Of Systems: See Below Constitutional: Reports: Fever, Chills, Malaise, Weakness, Decreased Appetite HEENT: Reports: No Symptoms, Other (mouth is very dry. ) Respiratory: Reports: No Symptoms Cardiovascular: Reports: No Symptoms Endocrine: Reports: No Symptoms GI/Abdominal: Reports: Other (pain in the left lower abdoman. ) : Reports: Other (pt has a known UTI. She took one sulfa tablet and she had a reaction. ) Musculoskeletal: Reports: No Symptoms Skin: Reports: No Symptoms Neurological: Reports: No Symptoms Psychiatric: Reports: Anxiety ED EXAM GENERAL NO PERIP PULSE - Physical Exam Exam: See Below Text/Narrative:: pt arrived with left lower quadrant pain. She was seen at the [facility] today and was found to have a UTI Exam Limited By: No Limitations General Appearance: Alert, Moderate Distress Ears: Normal TMs Nose: Normal Inspection Throat/Mouth: Normal Inspection Head: Atraumatic Neck: Normal Inspection Respiratory/Chest: No Respiratory Distress Cardiovascular: Regular Rate, Rhythm GI/Abdominal: Other (left lower abdomanal pain) Rectal (Female) Exam: Deferred Back Exam: CVA Tenderness (L) Extremities: Normal Inspection Neurological: Alert, Oriented, Normal Cognition Psychiatric: Normal Affect Course - Vital Signs Last Recorded V/S: Last Vital Signs Temp 100.6 C H 03/30/19 22:13 Pulse 117 H 03/30/19 20:07 Resp 18 03/30/19 20:07 BP 190/107 H 03/30/19 20:07 Pulse Ox 97 03/30/19 20:07 - Orders/Labs/Meds Orders: Active Orders 24 hr Category Date Time Status CULTURE BLOOD [BC] Urgent Lab 03/30/19 20:37 Received CULTURE BLOOD [BC] Urgent Lab 03/30/19 20:47 Received CULTURE URINE [RM] Stat Lab 03/30/19 22:24 Received Sodium Chloride 0.9% [Normal Saline] 1,000 ml Med 03/30/19 20:45 Active IV ASDIRECTED Sodium Chloride 0.9% [Normal Saline] 1,000 ml Med 03/30/19 21:30 Active IV ASDIRECTED cefTRIAXone [Rocephin] 1 gm Med 03/30/19 22:32 Active Sodium Chloride 0.9% [Normal Saline] 50 ml IV ONETIME Blood Culture x2 Reflex Set [OM.PC] Urgent Oth 03/30/19 20:40 Ordered Medication Orders Sodium Chloride (Normal Saline) 1,000 mls @ 999 mls/hr IV ASDIRECTED [facility] Last Admin: 03/30/19 21:32 Dose: 999 mls/hr Sodium Chloride (Normal Saline) 1,000 mls @ 999 mls/hr IV ASDIRECTED [facility] Last Admin: 03/30/19 22:14 Dose: 999 mls/hr Ceftriaxone Sodium 1 gm/ (Sodium Chloride) 50 mls @ 100 mls/hr IV ONETIME ONE Stop: 03/30/19 23:01 Labs: Laboratory Tests 03/30/19 03/30/19 03/30/19 Range/Units 20:47 20:47 20:47 WBC 13.4 H (4.5-11.0) K/uL RBC 4.32 (3.30-5.50) M/uL Hgb 12.2 (12.0-15.0) g/dL Hct 37.2 (36.0-48.0) % MCV 86 (80-98) fL MCH 28 (27-31) pg MCHC 33 (32-36) % Plt Count 263 (150-400) K/uL Neut % (Auto) 76 H (36-66) % Lymph % (Auto) 14 L (24-44) % Menard % (Auto) 9 H (2-6) % Eos % (Auto) 1 L (2-4) % Baso % (Auto) 0 (0-1) % Sodium 129 L (140-148) mmol/L Potassium 4.2 (3.6-5.2) mmol/L Chloride 92 L (100-108) mmol/L Carbon Dioxide 26 (21-32) mmol/L Anion Gap 15.2 H (5.0-14.0) mmol/L BUN 16 (7-18) mg/dL Creatinine 1.6 H D (0.6-1.0) mg/dL Est Cr Clr Drug Dosing 35.12 mL/min Estimated GFR (MDRD) 35 L (>60) Glucose 235 H (74-106) mg/dL Lactic Acid 1.6 (0.4-2.0) mmol/L Calcium 9.8 (8.5-10.1) mg/dL Total Bilirubin 1.4 H D (0.2-1.0) mg/dL AST 41 H D (15-37) U/L ALT 38 (12-78) U/L Alkaline Phosphatase 183 H (46-116) U/L C-Reactive Protein (0.0-0.3) mg/dL Total Protein 8.3 H (6.4-8.2) g/dL Albumin 2.9 L (3.4-5.0) g/dL Globulin 5.4 H (2.3-3.5) g/dL Albumin/Globulin Ratio 0.5 L (1.2-2.2) Urine Color Urine Appearance Urine pH (4.5-8.0) Ur Specific [place] (1.008-1.030) Urine Protein (NEGATIVE) mg/dL Urine Glucose (UA) (NEGATIVE) mg/dL Urine Ketones (NEGATIVE) mg/dL Urine Occult Blood (NEGATIVE) Urine Nitrite (NEGATIVE) Urine Bilirubin (NEGATIVE) Urine Urobilinogen (NORMAL) mg/dL Ur Leukocyte Esterase (NEGATIVE) Urine RBC (0-5) Urine WBC (0-5) 05/07/19 05/07/19 Range/Units 20:48 22:24 WBC (4.5-11.0) K/uL RBC (3.30-5.50) M/uL Hgb (12.0-15.0) g/dL Hct (36.0-48.0) % MCV (80-98) fL MCH (27-31) pg MCHC (32-36) % Plt Count (150-400) K/uL Neut % (Auto) (36-66) % Lymph % (Auto) (24-44) % Menard % (Auto) (2-6) % Eos % (Auto) (2-4) % Baso % (Auto) (0-1) % Sodium (140-148) mmol/L Potassium (3.6-5.2) mmol/L Chloride (100-108) mmol/L Carbon Dioxide (21-32) mmol/L Anion Gap (5.0-14.0) mmol/L BUN (7-18) mg/dL Creatinine (0.6-1.0) mg/dL Est Cr Clr Drug Dosing mL/min Estimated GFR (MDRD) (>60) Glucose (74-106) mg/dL Lactic Acid (0.4-2.0) mmol/L Calcium (8.5-10.1) mg/dL Total Bilirubin (0.2-1.0) mg/dL AST (15-37) U/L ALT (12-78) U/L Alkaline Phosphatase (46-116) U/L C-Reactive Protein 24.67 H (0.0-0.3) mg/dL Total Protein (6.4-8.2) g/dL Albumin (3.4-5.0) g/dL Globulin (2.3-3.5) g/dL Albumin/Globulin Ratio (1.2-2.2) Urine Color Red Urine Appearance Turbid Urine pH 6.0 (4.5-8.0) Ur Specific [place] 1.010 (1.008-1.030) Urine Protein 100 H (NEGATIVE) mg/dL Urine Glucose (UA) 100 H (NEGATIVE) mg/dL Urine Ketones Negative (NEGATIVE) mg/dL Urine Occult Blood Large (NEGATIVE) Urine Nitrite Negative (NEGATIVE) Urine Bilirubin Negative (NEGATIVE) Urine Urobilinogen 4 (NORMAL) mg/dL Ur Leukocyte Esterase Moderate (NEGATIVE) Urine RBC Packed H (0-5) Urine WBC (0-5) Meds: Medications Generic Name Dose Route Start Last Admin Trade Name Freq PRN Reason Stop Dose Admin Sodium Chloride 1,000 mls @ 999 mls/hr 03/30/19 20:45 03/30/19 21:32 Normal Saline IV 999 mls/hr ASDIRECTED MANFRED Administration Sodium Chloride 1,000 mls @ 999 mls/hr 03/30/19 21:30 03/30/19 22:14 Normal Saline IV 999 mls/hr ASDIRECTED MANFRED Administration Ceftriaxone Sodium 1 gm/ 50 mls @ 100 mls/hr 03/30/19 22:32 Sodium Chloride IV 03/30/19 23:01 ONETIME ONE Discontinued Medications Generic Name Dose Route Start Last Admin Trade Name Yarely PRN Reason Stop Dose Admin Acetaminophen 650 mg 03/30/19 21:41 03/30/19 22:13 Tylenol PO 03/30/19 21:42 650 mg NOW ONE Administration Diphenhydramine HCl 25 mg 03/30/19 20:46 03/30/19 21:15 Benadryl PO 03/30/19 20:47 25 mg ONETIME ONE Administration Diphenhydramine HCl 25 mg 03/30/19 20:46 03/30/19 21:15 Benadryl IVPUSH 03/30/19 20:47 25 mg ONETIME ONE Administration Tamsulosin HCl 0.4 mg 03/30/19 22:34 Flomax PO 03/30/19 22:35 ONETIME ONE - Re-Assessments/Exams Free Text/Narrative Re-Assessment/Exam: 03/30/19 22:48 pt had a urine which looked very infected. She had a elevated wbc, her crp was 26. She had a cat scan which shows a partial obstruction of ther left ureter. There is fluid around the ureter and kidney area. Blood cultures were set up as was a urine culture. Departure - Departure Time of Disposition: 22:49 Disposition: DC/Tfer to Acute Hospital 02 Condition: Fair Clinical Impression: Pyelonephritis, Left ureteral calculus - Discharge Information Referrals: Ann Watson PA-C [Primary Care Provider] - Forms: ED Department Discharge Care Plan Goals: transfer to [facility]. - My Orders Last 24 Hours: My Active Orders 03/30/19 20:37 CULTURE BLOOD [BC] Urgent 03/30/19 20:40 Blood Culture x2 Reflex Set [OM.PC] Urgent 03/30/19 20:45 Sodium Chloride 0.9% [Normal Saline] 1,000 ml IV ASDIRECTED 03/30/19 20:47 CULTURE BLOOD [BC] Urgent 03/30/19 21:30 Sodium Chloride 0.9% [Normal Saline] 1,000 ml IV ASDIRECTED 03/30/19 22:24 CULTURE URINE [RM] Stat 03/30/19 22:32 cefTRIAXone [Rocephin] 1 gm Sodium Chloride 0.9% [Normal Saline] 50 ml IV ONETIME - Assessment/Plan Last 24 Hours: My Active Orders 03/30/19 20:37 CULTURE BLOOD [BC] Urgent 03/30/19 20:40 Blood Culture x2 Reflex Set [OM.PC] Urgent 03/30/19 20:45 Sodium Chloride 0.9% [Normal Saline] 1,000 ml IV ASDIRECTED 03/30/19 20:47 CULTURE BLOOD [BC] Urgent 03/30/19 21:30 Sodium Chloride 0.9% [Normal Saline] 1,000 ml IV ASDIRECTED 03/30/19 22:24 CULTURE URINE [RM] Stat 03/30/19 22:32 cefTRIAXone [Rocephin] 1 gm Sodium Chloride 0.9% [Normal Saline] 50 ml IV ONETIME
[2019-03-30] MEDS ORDERED: diphenhydrAMINE 50 MG/ML SDV IVPUSH ONE (20:46)
[2019-03-30] MEDS ORDERED: diphenhydrAMINE 25 MG Cap PO ONE (20:46)
[2019-03-30] MEDS ORDERED: Acetaminophen 325 MG Tab PO ONE (21:41)
--- NOTE | 2019-03-30 22:05 | CRLCT ---
INDICATION: Lower abdominal pain. TECHNIQUE: CT of abdomen pelvis performed without oral IV contrast. COMPARISON: CT 12/08/2017. FINDINGS: Moderate diffuse fatty infiltration of liver more prominent. Cholecystectomy without significant biliary dilatation. Pancreas is lower in density than typical but this is likely a normal variant finding. The spleen is mildly enlarged at 13 cm in AP dimension and is stable. New single irregular stone or collection of stones in the left proximal ureter/UPJ measuring 9 mm in craniocaudad dimension by 4-5 mm in transverse dimension. This stone or stones are new and results in moderate left-sided nephromegaly and mild to moderate dilatation of the left renal pelvis and internal collecting system. Moderate soft tissue stranding and small amounts of fluid in the left perinephric region extending caudally into the lower abdominal and pelvic retroperitoneum. These changes could all be related to the obstructing stone however it would not be possible to exclude superimposed infection such as developing pyelitis/pyelonephritis. Clinical and laboratory correlation recommended. Small cyst right kidney. Small bilateral inguinal hernias containing fat. Colonic diverticulosis. Increased number of small lymph nodes in the abdominal retroperitoneum. Remainder negative. IMPRESSION: 1. New small to moderate size stone or collection of stones in the left proximal ureter and UVJ have developed resulting and moderate dilatation of the left internal collecting system and other findings of ureteral obstruction as described above. Given the inflammatory stranding and fluid surrounding left kidney extending into the pelvis, it would be possible to exclude superimposed renal infection/pyelitis/pyelonephritis related to the stone. Clinical and laboratory correlation is recommended in this regard. 2. Colonic diverticulosis. 3. Small fat containing bilateral inguinal hernias. 4. Both ovaries are upper limits normal to slightly prominent but the low-density lesions within them previously are not seen today with smaller cysts or follicles in the ovaries today 5. Cholecystectomy without significant biliary dilatation. Other findings as above. Please note that all CT scans at this facility use dose modulation, iterative reconstruction, and/or weight-based dosing when appropriate to reduce radiation dose to as low as reasonably achievable. Dictated by Ramos Guzmán MD @ Mar 30 2019 10:01PM Signed by Dr. Ramos Guzmán @ Mar 30 2019 10:03PM
[2019-03-30] MEDS ORDERED: cefTRIAXone 1 GM in Sodium Chloride 0.9% 50 ML IV ONE (22:32)
[2019-03-30] MEDS ORDERED: Tamsulosin 0.4 MG Cap.ER PO ONE (22:34)
[2019-03-30] MEDS ORDERED: HYDROmorphone 0.5 MG/0.5 ML Syringe IVPUSH ONE (22:53)
== END 2019-03-30 23:40 ==
LOC: JP.ED 19:38
DX: N12 Tubulo-interstitial nephritis, not specified as acute or chronic (principal); N20.1 Calculus of ureter; Z79.82 Long term (current) use of aspirin; Z79.84 Long term (current) use of oral hypoglycemic drugs; Z79.899 Other long term (current) drug therapy; Z87.891 Personal history of nicotine dependence; M19.90 Unspecified osteoarthritis, unspecified site; Z90.49 Acquired absence of other specified parts of digestive tract; Z91.030 Bee allergy status; Z88.0 Allergy status to penicillin; Z88.2 Allergy status to sulfonamides; Z88.8 Allergy status to other drugs, medicaments and biological substances
CPT/HCPCS: 36415; 74176; 80053; 81001; 83605; 85025; 86140; 87040; 87086; 96361; 96365; 96375; 99284; A9270; J0696; J1170; J1200; J7030; J7050

== ENCOUNTER 2020-02-16 13:41 | Emergency (ER) | payer MEDICARE, MEDICAID, OTHER ==
[2020-02-16 14:57] VITALS: BP 157/98; PULSE 95
--- NOTE | 2020-02-16 15:08 | EDM.PDOC ---
ED HPI GENERAL MEDICAL PROBLEM - General Chief Complaint: General Stated Complaint: FLU???COUGHING Time Seen by Provider: 02/16/20 14:50 Source of Information: Reports: Patient History Limitations: Reports: No Limitations - History of Present Illness INITIAL COMMENTS - FREE TEXT/NARRATIVE: 44-year-old female, non-smoker, has had a dry cough for the past 3 days with intermittent chills. No pain, no headache, cough is nonproductive. Denies nausea and vomiting, she has had some mild diarrhea. Her told her to come in today to get tested for coronavirus. She has not been traveling or been exposed to any active cases she knows of. Onset: Gradual Duration: Day(s): (2 to 3 days) Associated Symptoms: Reports: Cough, Fever/Chills, Malaise. Denies: Chest Pain , Nausea/Vomiting, Shortness of Breath Generalized Pain Score (Numeric/FACES): 5 - Related Data Allergies Allergy/AdvReac Type Severity Reaction Status Date / Time bee venom protein (honey bee) Allergy Severe Anaphylactic Verified 02/16/20 14: 49 Shock Penicillins Allergy Rash Verified 02/16/20 14:49 Sulfa (Sulfonamide Allergy Rash Verified 02/16/20 14:49 Antibiotics) [facility] AdvReac Stomach Verified 02/16/20 14:49 Upset Home Meds: Home Meds Gabapentin [Neurontin] 600 mg PO TID 11/02/16 [History] Simvastatin [Zocor] 5 mg PO BEDTIME 11/02/16 [History] buPROPion HCl [Wellbutrin Xl] 300 mg PO DAILY 11/02/16 [History] Cyclobenzaprine HCl 10 mg PO TID PRN 10/28/17 [History] hydrOXYzine pamoate [Hydroxyzine Pamoate] 25 mg PO TID PRN 10/28/17 [History] metFORMIN HCl [Metformin ER Osmotic] 500 mg PO BID 12/02/17 [History] Aspirin [Low Dose Aspirin EC] 81 mg PO DAILY 07/17/18 [History] Docusate Sodium [Colace] 100 mg PO BID PRN 07/17/18 [History] Acetaminophen [Tylenol Extra Strength] 1,000 mg PO BID 07/21/18 [History] glipiZIDE [Glucotrol] 5 mg PO DAILY 07/21/18 [History] methocarbamoL [Methocarbamol] 500 mg PO TID 07/21/18 [History] Past Medical History HEENT History: Reports: Impaired Vision Cardiovascular History: Reports: High Cholesterol Respiratory History: Reports: Asthma, Sleep Apnea Gastrointestinal History: Reports: Cholelithiasis, GERD Genitourinary History: Reports: Renal Calculus Musculoskeletal History: Reports: Back Pain, Chronic, Osteoarthritis Neurological History: Reports: Concussion, Head Trauma Psychiatric History: Reports: Anxiety, Depression Endocrine/Metabolic History: Reports: Diabetes, Type II, Obesity/BMI 30+ - Infectious Disease History Infectious Disease History: Reports: Chicken Pox - Past Surgical History HEENT Surgical History: Reports: None Cardiovascular Surgical History: Reports: None Respiratory Surgical History: Reports: None GI Surgical History: Reports: Appendectomy, Cholecystectomy, EGD, Hernia, Abdominal Female Surgical History: Reports: Lithotripsy/ESWL Endocrine Surgical History: Reports: None Neurological Surgical History: Reports: None Musculoskeletal Surgical History: Reports: Arthroscopic Knee, Shoulder Surgery Dermatological Surgical History: Reports: None Social & Family History - Family History Family Medical History: Noncontributory - Tobacco Use Smoking Status *Q: Never Smoker Second Hand Smoke Exposure: No - Caffeine Use Caffeine Use: Reports: Coffee, Energy Drinks, Soda Other Caffeine Use: 2 cups - Alcohol Use Days Per Week of Alcohol Use: 0 - Recreational Drug Use Recreational Drug Use: No ED ROS GENERAL - Review of Systems Review Of Systems: See Below Constitutional: Reports: Fever, Chills, Malaise HEENT: Denies: Ear Pain, Throat Pain Respiratory: Reports: Cough. Denies: Shortness of Breath, Sputum Cardiovascular: Denies: Chest Pain GI/Abdominal: Denies: Nausea, Vomiting Skin: Reports: No Symptoms Neurological: Denies: Headache Psychiatric: Reports: No Symptoms ED EXAM, GENERAL - Physical Exam Exam: See Below Exam Limited By: No Limitations General Appearance: Alert, No Apparent Distress Ears: Normal TMs Throat/Mouth: Normal Inspection Head: Atraumatic Respiratory/Chest: No Respiratory Distress, Lungs Clear Cardiovascular: Regular Rate, Rhythm Neurological: Alert, Oriented Psychiatric: Normal Affect, Normal Mood Skin Exam: Warm, Dry Course - Vital Signs Last Recorded V/S: Last Vital Signs Temp 96.9 F 02/16/20 14:55 Pulse 95 02/16/20 14:55 Resp 16 02/16/20 14:55 BP 157/98 H 02/16/20 14:55 Pulse Ox 98 02/16/20 14:55 - Orders/Labs/Meds Orders: Active Orders 24 hr Category Date Time Status Isolation [COMM] Routine Oth 02/16/20 15:05 Ordered - Re-Assessments/Exams Free Text/Narrative Re-Assessment/Exam: 02/16/20 15:28 Influenza's are both negative, which is not surprising as the patient really is not very ill. She likely has a typical viral URI with cough and she was encouraged to give this some more time and treat conservatively. She can return if worsening. Departure - Departure Time of Disposition: 15:35 Disposition: Home, Self-Care 01 Clinical Impression: Viral URI with cough - Discharge Information Instructions: Viral Respiratory Infection, [id number] Referrals: Ann Watson PA-C [Primary Care Provider] - Forms: ED Department Discharge Care Plan Goals: Rest, fluids, [id number] medications for symptoms if needed and return if worsening such as difficulty breathing or persistent vomiting. Sepsis Event Note - Evaluation Sepsis Screening Result: No Definite Risk - Focused Exam Vital Signs: Vital Signs Temp Pulse Resp BP Pulse Ox 02/16/20 14:55 96.9 F 95 16 157/98 H 98 Date Exam was Performed: 02/16/20 Time Exam was Performed: 16:17 - My Orders Last 24 Hours: My Active Orders 02/16/20 15:05 Isolation [COMM] Routine - Assessment/Plan Last 24 Hours: My Active Orders 02/16/20 15:05 Isolation [COMM] Routine
== END 2020-02-16 15:50 | disposition home or self-care (01) ==
LOC: JP.ED 13:41
DX: J06.9 Acute upper respiratory infection, unspecified (principal); E11.9 Type 2 diabetes mellitus without complications; E66.9 Obesity, unspecified; E78.00 Pure hypercholesterolemia, unspecified; J45.909 Unspecified asthma, uncomplicated; F41.9 Anxiety disorder, unspecified; F32.9 Major depressive disorder, single episode, unspecified; Z88.0 Allergy status to penicillin; Z88.2 Allergy status to sulfonamides; Z88.8 Allergy status to other drugs, medicaments and biological substances; Z91.030 Bee allergy status; Z68.41 Body mass index [BMI] 40.0-44.9, adult; Z79.84 Long term (current) use of oral hypoglycemic drugs; Z79.82 Long term (current) use of aspirin
CPT/HCPCS: 87804; 87804-59; 99283

== ENCOUNTER 2021-01-05 13:10 | Emergency (ER) | payer MEDICARE, MEDICAID ==
[2021-01-05 13:26] VITALS: BP 152/82; PULSE 111
--- NOTE | 2021-01-05 13:46 | EDM.PDOC ---
ED HPI GENERAL MEDICAL PROBLEM - General Chief Complaint: Diabetic Complaint Stated Complaint: HIGH BP, HIGH BLOOD SUGARS Time Seen by Provider: 01/05/21 13:29 Source of Information: Reports: Patient, Old Records History Limitations: Reports: No Limitations - History of Present Illness INITIAL COMMENTS - FREE TEXT/NARRATIVE: Judith is a 45-year-old female who is presented to the ER at the advice of the [facility] for evaluation of hyperglycemia. Patient is a type II diabetic who reports over the last several days she has had significant increase in her blood sugars. She states that 2 days ago her sugars which would normally be in the 100s started to become 200s. She states that she checks her blood sugar twice a day and called the clinic today to get new test strips because she has run out of them. When the nurse was asking her how things were going she reported that her blood glucose last night was 451. The patient reports that she has had a foul-smelling urine, increased frequency without burning and denies polydipsia but has had polyuria. She also reports that she has been quite diaphoretic and has had a racing heart beat and elevated blood pressure. The patient recently underwent a hysterectomy on November 02, 2020 that was performed at [place] for metromenorrhagia. She has had type 2 diabetes since 2016. She has essential hypertension and is experiencing diabetic foot pain secondary to peripheral neuropathy. In addition she has a history for GERD, dyslipidemia, obstructive sleep apnea, pancreatitis, pyelonephritis, anxiety and depression, and asthma. She has had surgeries including abdominal adhesion lysis, appendectomy, carpal tunnel syndrome bilaterally, EGD, hysterectomy, knee arthroscopy, lap cholecystectomy, and acromioplasty with repair of the rotator cuff, kidney stone removal, and umbilical hernia repair. She does take metformin 1000 mg 2 times a day and gabapentin 600 mg twice daily, and 81 mg aspirin, Cymbalta, omeprazole, simvastatin, Wellbutrin, iron, losartan, and cyclobenzaprine as needed for muscle spasm. - Related Data Allergies Allergy/AdvReac Type Severity Reaction Status Date / Time bee venom protein (honey bee) Allergy Severe Anaphylactic Verified 01/05/21 13:29 Shock Penicillins Allergy Rash Verified 01/05/21 13:29 Sulfa (Sulfonamide Allergy Rash Verified 01/05/21 13:29 Antibiotics) dulaglutide [From [facility]] AdvReac Stomach Verified 01/05/21 13:29 Upset Home Meds: Home Meds Gabapentin [Neurontin] 600 mg PO BID 11/02/16 [History] Simvastatin [Zocor] 20 mg PO BEDTIME 11/02/16 [History] buPROPion HCL [Wellbutrin Xl] 300 mg PO DAILY 11/02/16 [History] Cyclobenzaprine HCl 10 mg PO TID PRN 10/28/17 [History] metFORMIN HCl [Metformin ER Osmotic] 1,000 mg PO BID 12/02/17 [History] Aspirin [Low Dose Aspirin EC] 81 mg PO DAILY 07/17/18 [History] Docusate Sodium [Colace] 100 mg PO BID PRN 07/17/18 [History] DULoxetine [Cymbalta] 30 mg PO DAILY 09/08/20 [History] Diclofenac Sodium [Voltaren] 75 mg PO BIDMEALS 09/08/20 [History] EPINEPHrine [Epipen] 0.3 mg IM ASDIRECTED PRN 09/08/20 [History] Ferrous Fumarate/Vitamin C [Vitron-C] 1 tab PO BID 09/08/20 [History] Omeprazole 20 mg PO BID 09/08/20 [History] Ferrous Fumarate/Vitamin C [Vitron-C] 1 tab PO BID 01/05/21 [History] Hydrochlorothiazide/Losartan [Hyzaar 100-25 MG] 1 tab PO DAILY 01/05/21 [History] Past Medical History HEENT History: Reports: Impaired Vision Cardiovascular History: Reports: High Cholesterol Respiratory History: Reports: Asthma, Sleep Apnea Gastrointestinal History: Reports: Cholelithiasis, GERD Genitourinary History: Reports: Renal Calculus Musculoskeletal History: Reports: Back Pain, Chronic, Osteoarthritis Neurological History: Reports: Concussion, Head Trauma Psychiatric History: Reports: Anxiety, Depression Endocrine/Metabolic History: Reports: Diabetes, Type II, Obesity/BMI 30+ - Infectious Disease History Infectious Disease History: Reports: Chicken Pox - Past Surgical History HEENT Surgical History: Reports: None Cardiovascular Surgical History: Reports: None Respiratory Surgical History: Reports: None GI Surgical History: Reports: Appendectomy, Cholecystectomy, EGD, Hernia, Abdominal Female Surgical History: Reports: Lithotripsy/ESWL Endocrine Surgical History: Reports: None Neurological Surgical History: Reports: None Musculoskeletal Surgical History: Reports: Arthroscopic Knee, Shoulder Surgery Dermatological Surgical History: Reports: None Social & Family History - Family History Family Medical History: No Pertinent Family History - Caffeine Use Caffeine Use: Reports: Coffee, Energy Drinks, Soda Other Caffeine Use: 2 cups ED ROS GENERAL - Review of Systems Review Of Systems: See Below Constitutional: Reports: Diaphoresis, Decreased Appetite. Denies: Fever, Chills HEENT: Reports: Other (Dry mouth) Respiratory: Reports: No Symptoms Cardiovascular: Reports: Blood Pressure Problem Endocrine: Reports: Fatigue, High Glucose, Polyuria, Other (Patient does consume 4 to 6 cans of soda a day. She also drinks about an equal amount of orange juice a day. It is unclear whether she follows her carbohydrate intake with her diet.) GI/Abdominal: Reports: No Symptoms, Decreased Appetite : Reports: Frequency. Denies: Pain, Urgency Musculoskeletal: Reports: No Symptoms Skin: Reports: Diaphoresis Neurological: Reports: No Symptoms Psychiatric: Reports: Anxiety Hematologic/Lymphatic: Reports: No Symptoms Immunologic: Reports: No Symptoms ED EXAM GENERAL NO PERIP PULSE - Physical Exam Exam: See Below Exam Limited By: No Limitations General Appearance: Alert, No Apparent Distress, Anxious Eye Exam: Bilateral Eye: EOMI, PERRL Throat/Mouth: Normal Inspection, Normal Lips, Normal Oropharynx, Normal Voice, No Airway Compromise Head: Atraumatic, Normocephalic Neck: Normal Inspection, Supple, Non-Tender, Full Range of Motion Course - Vital Signs Last Recorded V/S: Last Vital Signs Temp 35.3 C L 01/05/21 13:23 Pulse 111 H 01/05/21 13:23 Resp 18 01/05/21 13:23 BP 152/82 H 01/05/21 13:23 Pulse Ox 98 01/05/21 13:23 - Orders/Labs/Meds Orders: Active Orders 24 hr Category Date Time Status GLUCOSE POC LAB TO COLLECT JPM [POC] Stat Lab 01/05/21 16:00 Ordered Dextrose 50% in Water Med 01/05/21 14:34 Active 50 ml IVPUSH ASDIRECTED PRN Dextrose 50% in Water Med 01/05/21 15:12 Active 50 ml IVPUSH ASDIRECTED PRN Glucagon,Human Recombinant [GlucaGen] Med 01/05/21 14:34 Active 1 mg IM ASDIRECTED PRN Glucagon,Human Recombinant [GlucaGen] Med 01/05/21 15:12 Active 1 mg IM ASDIRECTED PRN Sodium Chloride 0.9% [Saline Flush] Med 01/05/21 14:33 Active 10 ml FLUSH ASDIRECTED PRN Medication Orders Dextrose/Water (Dextrose 50% In Water) 50 ml IVPUSH ASDIRECTED PRN PRN Reason: Hypoglycemia Dextrose/Water (Dextrose 50% In Water) 50 ml IVPUSH ASDIRECTED PRN PRN Reason: Hypoglycemia Glucagon (Glucagen) 1 mg IM ASDIRECTED PRN PRN Reason: Hypoglycemia Glucagon (Glucagen) 1 mg IM ASDIRECTED PRN PRN Reason: Hypoglycemia Sodium Chloride (Saline Flush) 10 ml FLUSH ASDIRECTED PRN PRN Reason: Keep Vein Open Labs: Laboratory Tests 01/05/21 01/05/21 01/05/21 Range/Units 13:46 13:46 13:46 WBC 7.9 (4.5-11.0) K/uL RBC 4.50 (3.30-5.50) M/uL Hgb 12.0 (12.0-15.0) g/dL Hct 36.8 (36.0-48.0) % MCV 82 (80-98) fL MCH 27 (27-31) pg MCHC 33 (32-36) % Plt Count 222 (150-400) K/uL Neut % (Auto) 60 (36-66) % Lymph % (Auto) 30 (24-44) % [place] % (Auto) 6 (2-6) % Eos % (Auto) 3 (2-4) % Baso % (Auto) 1 (0-1) % ABG Hemoglobin 12.2 (12.0-16.0) g/dL ABG Oxyhemoglobin 59.9 % ABG Carboxyhemoglobin 1.9 H (0.0-1.6) % ABG Methemoglobin 1.0 % VBG pH 7.387 (7.350-7.450) VBG pCO2 38.7 mm/Hg VBG pO2 35.5 mm/Hg VBG HCO3 22.8 mmol/L VBG Total CO2 20.8 mmol/L VBG O2 Saturation 61.7 VBG O2 Content 10.3 %vol VBG Base Excess -1.4 mm/L O2 Delivery Device Room air Sodium 132 L (140-148) mmol/L Potassium 4.8 (3.6-5.2) mmol/L Chloride 95 L (100-108) mmol/L Carbon Dioxide 24 (21-32) mmol/L Anion Gap 17.8 H (5.0-14.0) mmol/L BUN 28 H D (7-18) mg/dL Creatinine 1.3 H (0.6-1.0) mg/dL Est Cr Clr Drug Dosing 42.77 mL/min Estimated GFR (MDRD) 44 L (>60) Glucose 440 H* (74-106) mg/dL Calcium 10.1 (8.5-10.1) mg/dL Total Bilirubin 0.3 D (0.2-1.0) mg/dL AST 31 (15-37) U/L ALT 37 (12-78) U/L Alkaline Phosphatase 148 H (46-116) U/L Total Protein 7.9 (6.4-8.2) g/dL Albumin 3.5 (3.4-5.0) g/dL Globulin 4.4 H (2.3-3.5) g/dL Albumin/Globulin Ratio 0.8 L (1.2-2.2) Urine Color (YELLOW) Urine Appearance (CLEAR) Urine pH (5.0-8.0) Ur Specific [place] (1.008-1.030) Urine Protein (NEGATIVE) mg/dL Urine Glucose (UA) (NEGATIVE) mg/dL Urine Ketones (NEGATIVE) mg/dL Urine Occult Blood (NEGATIVE) Urine Nitrite (NEGATIVE) Urine Bilirubin (NEGATIVE) Urine Urobilinogen (0.2-1.0) EU/dL Ur Leukocyte Esterase (NEGATIVE) Urine RBC (0-5) Urine WBC (0-5) Ur Epithelial Cells Amorphous Sediment Urine Bacteria Urine Mucus Ketones (NEGATIVE) 01/05/21 01/05/21 Range/Units 13:46 14:20 WBC (4.5-11.0) K/uL RBC (3.30-5.50) M/uL Hgb (12.0-15.0) g/dL Hct (36.0-48.0) % MCV (80-98) fL MCH (27-31) pg MCHC (32-36) % Plt Count (150-400) K/uL Neut % (Auto) (36-66) % Lymph % (Auto) (24-44) % [place] % (Auto) (2-6) % Eos % (Auto) (2-4) % Baso % (Auto) (0-1) % ABG Hemoglobin (12.0-16.0) g/dL ABG Oxyhemoglobin % ABG Carboxyhemoglobin (0.0-1.6) % ABG Methemoglobin % VBG pH (7.350-7.450) VBG pCO2 mm/Hg VBG pO2 mm/Hg VBG HCO3 mmol/L VBG Total CO2 mmol/L VBG O2 Saturation VBG O2 Content %vol VBG Base Excess mm/L O2 Delivery Device Sodium (140-148) mmol/L Potassium (3.6-5.2) mmol/L Chloride (100-108) mmol/L Carbon Dioxide (21-32) mmol/L Anion Gap (5.0-14.0) mmol/L BUN (7-18) mg/dL Creatinine (0.6-1.0) mg/dL Est Cr Clr Drug Dosing mL/min Estimated GFR (MDRD) (>60) Glucose (74-106) mg/dL Calcium (8.5-10.1) mg/dL Total Bilirubin (0.2-1.0) mg/dL AST (15-37) U/L ALT (12-78) U/L Alkaline Phosphatase (46-116) U/L Total Protein (6.4-8.2) g/dL Albumin (3.4-5.0) g/dL Globulin (2.3-3.5) g/dL Albumin/Globulin Ratio (1.2-2.2) Urine Color Yellow (YELLOW) Urine Appearance Slightly cloudy A (CLEAR) Urine pH 6.0 (5.0-8.0) Ur Specific [place] 1.015 (1.008-1.030) Urine Protein Negative (NEGATIVE) mg/dL Urine Glucose (UA) 500 H (NEGATIVE) mg/dL Urine Ketones Negative (NEGATIVE) mg/dL Urine Occult Blood Negative (NEGATIVE) Urine Nitrite Negative (NEGATIVE) Urine Bilirubin Negative (NEGATIVE) Urine Urobilinogen 0.2 (0.2-1.0) EU/dL Ur Leukocyte Esterase Negative (NEGATIVE) Urine RBC Not seen (0-5) Urine WBC 5-10 H (0-5) Ur Epithelial Cells Rare Amorphous Sediment Not seen Urine Bacteria Moderate Urine Mucus Not seen Ketones Negative (NEGATIVE) Meds: Medications Generic Name Dose Route Start Last Admin Trade Name Freq PRN Reason Stop Dose Admin Dextrose/Water 50 ml 01/05/21 14:34 Dextrose 50% In Water IVPUSH ASDIRECTED PRN Hypoglycemia Dextrose/Water 50 ml 01/05/21 15:12 Dextrose 50% In Water IVPUSH ASDIRECTED PRN Hypoglycemia Glucagon 1 mg 01/05/21 14:34 Glucagen IM ASDIRECTED PRN Hypoglycemia Glucagon 1 mg 01/05/21 15:12 Glucagen IM ASDIRECTED PRN Hypoglycemia Sodium Chloride 10 ml 01/05/21 14:33 Saline Flush FLUSH ASDIRECTED PRN Keep Vein Open Discontinued Medications Generic Name Dose Route Start Last Admin Trade Name Freq PRN Reason Stop Dose Admin Insulin Human Regular 10 unit 01/05/21 14:34 01/05/21 15:22 Humulin R IVPUSH 01/05/21 14:35 Not Given ONETIME ONE Insulin Human Regular 10 unit 01/05/21 15:12 01/05/21 15:14 Humulin R SUBCUT 01/05/21 15:13 10 units ONETIME ONE Administration - Re-Assessments/Exams Free Text/Narrative Re-Assessment/Exam: 01/05/21 15:25 I reviewed the patient's labs showing a significant blood glucose of 440. We treated this with regular insulin 10 units subcutaneous. She also shows elevation of her creatinine at 1.3 with some mild renal insufficiency. Creatinine clearance is only 41. Her venous blood gas shows a pH of 7.38, PCO2 35, PO2 of 32, and a bicarb of 22. Patient is negative for serum ketones. Urinalysis does not show any sign of infection and is negative for ketones. The patient was observed for 30 minutes after the regular insulin and [id number] blood glucose was obtained showing a glucose of 308 mg/dL. I discussed the case with Dr. Ann Watson who is the patient's primary provider. We discussed possibly starting semaglutide 0.5 mg subcu once a week, however, I would be reluctant to start this as an outpatient without at patient seen the business initiatives manager as I do not believe that she is sophisticated enough to understand management or how to do the subcutaneous injections with the pen. The patient is scheduled to see a business initiatives manager on January 10 so it may be better to wait until then allowing her to have permissive hyperglycemia until then. In addition, I am going to instruct the patient to avoid or severely restrict her carbohydrate intake until she sees a business initiatives manager. This includes no further intake of soda, no juice or milk, no ice cream or high carbohydrate foods like cereals, and avoidance of alcohol. Ann will work on the prior authorization for the semaglutide. She will also send a note to the business initiatives manager. Indications to return to the ED were discussed. Departure - Departure Time of Disposition: 16:04 Disposition: Home, Self-Care 01 Clinical Impression: Morbid obesity with BMI of 40.0-44.9, adult Hyperglycemia due to type 2 diabetes mellitus Qualifiers: Diabetes mellitus superintendent terminal insulin use: without longterm use Qualified Code(s): E11.65 - Type 2 diabetes mellitus with hyperglycemia Renal failure Qualifiers: Renal failure chronicity: chronic Chronic kidney disease stage: stage 2 (mild) Qualified Code(s): N18.2 - Chronic kidney disease, stage 2 (mild) - Discharge Information *PRESCRIPTION DRUG MONITORING PROGRAM REVIEWED*: Not Applicable *COPY OF PRESCRIPTION DRUG MONITORING REPORT IN PATIENT JEFF: Not Applicable Instructions: Acute Kidney Injury, Adult, Hyperglycemia, Type 2 Diabetes Mellitus, Diagnosis, Adult, [id number] Referrals: Ann Watson PA-C [Primary Care Provider] - Forms: ED Department Discharge Care Plan Goals: I discussed your case with your primary care provider, Ann Watson and she is sending through a prescription for Ozempic which is a once a week shot. I would wait until you see your business initiatives manager on January 10 to initiate this as it will require some instruction on how to manage your diabetes with this medication. I would severely limit your intake of carbohydrates (sugars) including no use of soda of any kind, minimal use of juices especially orange juice which is high in glucose, no intake of sugars like cereals, ice cream, pastries, or even pastas. In addition make sure you are taking in plenty of water at least 8 to 10 glasses a day. All these things should help lower your blood glucose. Make sure to follow-up with your business initiatives manager appointment on January 10. Sepsis Event Note (ED) - Evaluation Sepsis Screening Result: No Definite Risk - Focused Exam Vital Signs: Vital Signs Temp Pulse Resp BP Pulse Ox 01/05/21 13:23 35.3 C L 111 H 18 152/82 H 98 - My Orders Last 24 Hours: My Active Orders 01/05/21 14:33 Sodium Chloride 0.9% [Saline Flush] 10 ml FLUSH ASDIRECTED PRN 01/05/21 14:34 Dextrose 50% in Water 50 ml IVPUSH ASDIRECTED PRN Glucagon,Human Recombinant [GlucaGen] 1 mg IM ASDIRECTED PRN 01/05/21 15:12 Dextrose 50% in Water 50 ml IVPUSH ASDIRECTED PRN Glucagon,Human Recombinant [GlucaGen] 1 mg IM ASDIRECTED PRN 01/05/21 16:00 GLUCOSE POC LAB TO COLLECT JPM [POC] Stat - Assessment/Plan Last 24 Hours: My Active Orders 01/05/21 14:33 Sodium Chloride 0.9% [Saline Flush] 10 ml FLUSH ASDIRECTED PRN 01/05/21 14:34 Dextrose 50% in Water 50 ml IVPUSH ASDIRECTED PRN Glucagon,Human Recombinant [GlucaGen] 1 mg IM ASDIRECTED PRN 01/05/21 15:12 Dextrose 50% in Water 50 ml IVPUSH ASDIRECTED PRN Glucagon,Human Recombinant [GlucaGen] 1 mg IM ASDIRECTED PRN 01/05/21 16:00 GLUCOSE POC LAB TO COLLECT JPM [POC] Stat
[2021-01-05] MEDS ORDERED: Sodium Chloride 0.9% 10 ML Syringe FLUSH PRN (14:33)
[2021-01-05] MEDS ORDERED: Glucagon,Human Recombinant 1 MG Vial IM PRN ×2 (14:34→15:12)
[2021-01-05] MEDS ORDERED: Insulin Regular, Human 100 Units/ML 3 ML Vial IVPUSH ONE (14:34)
[2021-01-05] MEDS ORDERED: 50% Dextrose in Water 50 ML Syringe IVPUSH PRN ×2 (14:34→15:12)
[2021-01-05] MEDS ORDERED: Insulin Regular, Human 100 Units/ML 3 ML Vial SUBCUT ONE (15:12)
== END 2021-01-05 16:39 | disposition home or self-care (01) ==
LOC: JP.ED 13:10
DX: E11.65 Type 2 diabetes mellitus with hyperglycemia (principal); E66.01 Morbid (severe) obesity due to excess calories; N18.2 Chronic kidney disease, stage 2 (mild); E78.00 Pure hypercholesterolemia, unspecified; J45.909 Unspecified asthma, uncomplicated; K21.9 Gastro-esophageal reflux disease without esophagitis; M19.90 Unspecified osteoarthritis, unspecified site; E11.22 Type 2 diabetes mellitus with diabetic chronic kidney disease; Z68.41 Body mass index [BMI] 40.0-44.9, adult; Z91.030 Bee allergy status; Z88.0 Allergy status to penicillin; Z88.2 Allergy status to sulfonamides; Z88.8 Allergy status to other drugs, medicaments and biological substances; Z79.82 Long term (current) use of aspirin; Z79.84 Long term (current) use of oral hypoglycemic drugs
CPT/HCPCS: 36415; 80053; 81001; 82009; 82803; 82962; 85025; 99284; J1815-GY

== ENCOUNTER 2021-02-09 07:22 | Day surgery (SDC) | payer MEDICARE, MEDICAID ==
[~2021-02-09 07:22] MED LIST changes: -Bupivacaine 0.5%/EPINEPHrine 1:200,000 50 ML MDV ONE; -Meropenem 500 MG SDV ONE; +Sodium Chloride 0.9% 1,000 ML IV SCH
[2021-02-09] MEDS ORDERED: Midazolam 1 MG/ML 2 ML SDV ONE (07:38)
[2021-02-09] MEDS ORDERED: Propofol 200 MG/20 ML SDV ONE (07:38)
[2021-02-09] MEDS ORDERED: fentaNYL 100 MCG/2 ML SDV ONE (07:38)
[2021-02-09 09:54] VITALS: BP 132/81; PULSE 91
--- NOTE | 2021-02-09 13:42 | OR ---
DATE OF PROCEDURE: 02/09/2021 SURGEON: Keshawn Hunter MD PROCEDURE: Colonoscopy. FINDINGS: 1. Diverticulosis, moderate, limited mostly to sigmoid colon but throughout the entire colon. 2. Transverse colon polyp, approximately 5 mm, completely removed using cold biopsy forceps. 3. Rectal polyp, approximately 5 mm, completely removed using cold biopsy forceps. COMPLICATIONS: None. DIGITAL MANAGER: None. PREOPERATIVE DIAGNOSIS: Family history of colorectal cancer. POSTOPERATIVE DIAGNOSIS: Family history of colorectal cancer. RISKS: Risks, benefits, alternatives, and limitations including, but not limited to infection, bleeding, false positives, and false negatives were explained to the patient who wished to proceed. PROCEDURE IN DETAIL: The patient was placed in left lateral decubitus position. The colonoscope was introduced and advanced atraumatically to the ileocecal valve. A photo was taken of the appendiceal orifice. The scope was brought back to the ascending, transverse, descending colon, and retroflexed. No evidence of an old or new blood. The aforementioned polyps were identified and completely removed. No abnormalities on retroflexion. Diverticulosis would be described as moderate, mostly concentrated in the sigmoid colon without evidence of diverticulitis or bleeding. The prep was marginal with approximately 90% of the luminal surface could be seen due to retained solid stool. Suction irrigation techniques were used to maximize visualization. Greater than 8 minutes was spent removing the scope. The patient tolerated the procedure well. Keshawn Hunter MD /[id number]
== END 2021-02-09 10:22 | disposition home or self-care (01) ==
LOC: JP.SDS 07:22
PROVIDERS: ATTEND Surgery
DX: Z12.11 Encounter for screening for malignant neoplasm of colon (principal); D12.3 Benign neoplasm of transverse colon; K62.1 Rectal polyp; K57.30 Diverticulosis of large intestine without perforation or abscess without bleeding; J45.909 Unspecified asthma, uncomplicated; I10 Essential (primary) hypertension; G47.33 Obstructive sleep apnea (adult) (pediatric); E11.9 Type 2 diabetes mellitus without complications; E66.9 Obesity, unspecified; Z68.41 Body mass index [BMI] 40.0-44.9, adult; Z80.0 Family history of malignant neoplasm of digestive organs; Z88.0 Allergy status to penicillin; Z88.2 Allergy status to sulfonamides; Z88.8 Allergy status to other drugs, medicaments and biological substances; Z91.030 Bee allergy status
CPT/HCPCS: J2250; J2704; J3010; J7030

== ENCOUNTER 2021-05-05 18:42 | Emergency (ER) | payer MEDICAID, MEDICARE ==
[2021-05-05] MEDS ORDERED: Sodium Chloride 0.9% 10 ML Syringe FLUSH PRN (18:46)
[2021-05-05] MEDS ORDERED: fentaNYL 100 MCG/2 ML SDV IVPUSH ONE (18:46)
[2021-05-05] MEDS ORDERED: Ondansetron 4 MG/2 ML SDV IVPUSH ONE (18:47)
[2021-05-05] MEDS ORDERED: Sodium Chloride 0.9% 10 ML Syringe FLUSH ONE (18:48)
[2021-05-05] MEDS ORDERED: Iopamidol 612 MG/ML 500 ML Multipack Bottle IV ONE (18:48)
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
[2021-05-05 19:13] VITALS: BP 192/63; PULSE 105
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
[2021-05-05] MEDS ORDERED: Methocarbamol 500 MG Tab PO ONE (20:18)
== END 2021-05-05 20:59 | disposition home or self-care (01) ==
LOC: JP.ED 18:42
DX: S16.1XXA Strain of muscle, fascia and tendon at neck level, initial encounter (principal); S39.012A Strain of muscle, fascia and tendon of lower back, initial encounter; E78.00 Pure hypercholesterolemia, unspecified; I10 Essential (primary) hypertension; K21.9 Gastro-esophageal reflux disease without esophagitis; E11.9 Type 2 diabetes mellitus without complications; E66.9 Obesity, unspecified; Z68.30 Body mass index [BMI] 30.0-30.9, adult; Z79.899 Other long term (current) drug therapy; Z79.84 Long term (current) use of oral hypoglycemic drugs; V86.99XA Unspecified occupant of other special all-terrain or other off-road motor vehicle injured in nontraffic accident, initial encounter
CPT/HCPCS: 36415; 70450; 71260; 72125; 74177; 80053; 80307; 85025; 85610; 85730; 96374; 96375; 99284; A9270; J2405; J3010; Q9967

== ENCOUNTER 2021-11-03 09:04 | Emergency (ER) | payer MEDICARE ==
[2021-11-03 09:17] VITALS: BP 135/79; PULSE 104
--- NOTE | 2021-11-03 09:46 | EDM.PDOC ---
ED HPI GENERAL MEDICAL PROBLEM - General Chief Complaint: Abdominal Pain Stated Complaint: PAIN ON LEFT SIDE Time Seen by Provider: 11/03/21 09:25 Source of Information: Reports: Patient History Limitations: Reports: No Limitations - History of Present Illness INITIAL COMMENTS - FREE TEXT/NARRATIVE: 46-year-old female in with a couple of complaints, the first is left lower quad rant pain for the past several weeks, slowly worsening and becoming more noticeable with movement. She also has developed vaginal bleeding over the past 12 to 24 hours which is very unusual because she has had a hysterectomy in the last 2 years. No fevers or chills, denies nausea or vomiting, denies dark stools. Onset: Gradual Location: Reports: Abdomen (Abdominal pain is left lower quadrant, bleeding is likely vaginal but she is not sure) Associated Symptoms: Denies: Chest Pain, Fever/Chills, Loss of Appetite, [place], Nausea/Vomiting, Shortness of Breath, Weakness Left Abdomen Pain Score (Numeric/FACES): 7 - Related Data Allergies Allergy/AdvReac Type Severity Reaction Status Date / Time bee venom protein (honey bee) Allergy Severe Anaphylactic Verified 05/05/21 19:36 Shock Penicillins Allergy Rash Verified 05/05/21 19:36 Sulfa (Sulfonamide Allergy Rash Verified 05/05/21 19:36 Antibiotics) sulfamethoxazole Allergy Rash Verified 05/05/21 19:36 [From Bactrim] trimethoprim [From Bactrim] Allergy Rash Verified 05/05/21 19:36 dulaglutide [From Trulicity] AdvReac Stomach Verified 05/05/21 19:36 Upset Home Meds: Home Meds Gabapentin [Neurontin] 600 mg PO BID 11/02/16 [History] Simvastatin [Zocor] 20 mg PO BEDTIME 11/02/16 [History] buPROPion HCL [Wellbutrin Xl] 300 mg PO DAILY 11/02/16 [History] Cyclobenzaprine HCl 10 mg PO TID PRN 10/28/17 [History] metFORMIN HCl [Metformin ER Osmotic] 1,000 mg PO BID 12/02/17 [History] Aspirin [Low Dose Aspirin EC] 81 mg PO DAILY 07/17/18 [History] Docusate Sodium [Colace] 100 mg PO BID PRN 07/17/18 [History] DULoxetine [Cymbalta] 30 mg PO DAILY 09/08/20 [History] Diclofenac Sodium [Voltaren] 75 mg PO BIDMEALS 09/08/20 [History] EPINEPHrine [Epipen] 0.3 mg IM ASDIRECTED PRN 09/08/20 [History] Omeprazole 20 mg PO BID 09/08/20 [History] Hydrochlorothiazide/Losartan [Hyzaar 100-25 MG] 1 tab PO DAILY 01/05/21 [History] Ferrous Fumarate/Vitamin C [Vitron-C] 1 tab PO DAILY 02/07/21 [History] Semaglutide [Ozempic] 0.25 mg SQ ASDIRECTED 02/07/21 [History] methocarbamoL [Methocarbamol] 750 mg PO QID PRN #28 tablet 05/05/21 [Rx] Past Medical History HEENT History: Reports: None Cardiovascular History: Reports: High Cholesterol, Hypertension Respiratory History: Reports: Asthma, Sleep Apnea, Other (See Below) Other Respiratory History: Cpap at night. Gastrointestinal History: Reports: Cholelithiasis, Diverticulosis, GERD Genitourinary History: Reports: Renal Calculus [employer] History: Reports: None Musculoskeletal History: Reports: Back Pain, Chronic, Osteoarthritis Neurological History: Reports: Concussion, Head Trauma Psychiatric History: Reports: Anxiety, Depression, PTSD Endocrine/Metabolic History: Reports: Diabetes, Type II, Obesity/BMI 30+ Hematologic History: Reports: Blood Transfusion(s) Immunologic History: Reports: None Oncologic (Cancer) History: Reports: None Dermatologic History: Reports: None - Infectious Disease History Infectious Disease History: Reports: Chicken Pox - Past Surgical History Head Surgeries/Procedures: Reports: None HEENT Surgical History: Reports: None Cardiovascular Surgical History: Reports: None Respiratory Surgical History: Reports: None GI Surgical History: Reports: Appendectomy, Cholecystectomy, EGD, Hernia, Abdominal Female Surgical History: Reports: Hysterectomy, Lithotripsy/ESWL Endocrine Surgical History: Reports: None Neurological Surgical History: Reports: None Musculoskeletal Surgical History: Reports: Arthroscopic Knee, Shoulder Surgery Oncologic Surgical History: Reports: None Dermatological Surgical History: Reports: None Social & Family History - Family History Family Medical History: No Pertinent Family History - Tobacco Use Tobacco Use Status *Q: Never Tobacco User - Caffeine Use Caffeine Use: Reports: Soda Other Caffeine Use: 2 cups - Recreational Drug Use Recreational Drug Use: No ED ROS GENERAL - Review of Systems Review Of Systems: See Below Constitutional: Denies: Fever, Chills, Malaise HEENT: Reports: No Symptoms Respiratory: Reports: No Symptoms Cardiovascular: Reports: No Symptoms GI/Abdominal: Reports: Abdominal Pain. Denies: Constipation, Diarrhea, Nausea, Vomiting : Denies: Dysuria, Urgency Musculoskeletal: Reports: No Symptoms Skin: Reports: No Symptoms Neurological: Reports: No Symptoms Free Text/Narrative/Comment: Patient apparently is diabetic and is supposed to have a recheck with her doctor regarding blood sugars. She has not seen primary care in a while. ED EXAM, GI/ABD - Physical Exam Exam: See Below Exam Limited By: No Limitations General Appearance: Alert, No Apparent Distress Eyes: Bilateral: Normal Appearance (Conjunctiva good color, normal hydration, no jaundice) Head: Atraumatic Neck: Supple, Non-Tender Respiratory/Chest: Lungs Clear Cardiovascular: Regular Rate, Rhythm GI/Abdominal Exam: Normal Bowel Sounds, Soft, Tender (Patient is significantly tender in the left lower quadrant with slight rebound tenderness and equivocal guarding) (Female) Exam: Vaginal Bleeding (Speculum exam reveals a clot in the deep vaginal vault, there is atrophy of the wall but no obvious source of bleeding) Rectal (Female) Exam: Normal Exam Extremities: Normal Inspection Neurological: Alert, Oriented Psychiatric: Normal Affect, Normal Mood Skin Exam: Warm, Dry Course - Vital Signs Last Recorded V/S: Last Vital Signs Temp 95.3 F L 11/03/21 09:16 Pulse 104 H 11/03/21 09:16 Resp 16 11/03/21 09:16 BP 135/79 11/03/21 09:16 Pulse Ox 99 11/03/21 09:16 - Orders/Labs/Meds Orders: Active Orders 24 hr Category Date Time Status CULTURE URINE [RM] Stat Lab 11/03/21 12:45 Received Labs: Laboratory Tests 11/03/21 11/03/21 11/03/21 Range/Units 09:41 09:52 09:52 WBC 11.0 (4.5-11.0) K/uL RBC 4.21 (3.30-5.50) M/uL Hgb 12.2 (12.0-15.0) g/dL Hct 36.6 (36.0-48.0) % MCV 87 (80-98) fL MCH 29 (27-31) pg MCHC 33 (32-36) % Plt Count 274 (150-400) K/uL Neut % (Auto) 64.4 (36-66) % Lymph % (Auto) 24.8 (24-44) % [place] % (Auto) 8.4 H (2-6) % Eos % (Auto) 1.9 L (2-4) % Baso % (Auto) 0.5 (0-1) % Sodium 135 L (140-148) mmol/L Potassium 4.5 (3.6-5.2) mmol/L Chloride 99 L (100-108) mmol/L Carbon Dioxide 26 (21-32) mmol/L Anion Gap 14.5 H (5.0-14.0) mmol/L BUN 20 H (7-18) mg/dL Creatinine 1.3 H (0.6-1.0) mg/dL Est Cr Clr Drug Dosing 42.31 mL/min Estimated GFR (MDRD) 44 L (>60) Glucose 126 H (74-106) mg/dL Calcium 9.2 (8.5-10.1) mg/dL Total Bilirubin 0.5 (0.2-1.0) mg/dL AST 14 L (15-37) U/L ALT 25 (12-78) U/L Alkaline Phosphatase 134 H (46-116) U/L Total Protein 7.7 (6.4-8.2) g/dL Albumin 3.6 (3.4-5.0) g/dL Globulin 4.1 H (2.3-3.5) g/dL Albumin/Globulin Ratio 0.9 L (1.2-2.2) Urine Color Yellow (YELLOW) Urine Appearance Turbid A (CLEAR) Urine pH 5.0 (5.0-8.0) Ur Specific [place] 1.020 (1.008-1.030) Urine Protein 100 H (NEGATIVE) mg/dL Urine Glucose (UA) Negative (NEGATIVE) mg/dL Urine Ketones Trace H (NEGATIVE) mg/dL Urine Occult Blood Moderate H (NEGATIVE) Urine Nitrite Negative (NEGATIVE) Urine Bilirubin Small H (NEGATIVE) Urine Urobilinogen 1.0 (0.2-1.0) EU/dL Ur Leukocyte Esterase Moderate H (NEGATIVE) Urine RBC 10-20 H (0-5) Urine WBC 75-100 H (0-5) Ur Epithelial Cells Few Amorphous Sediment Not seen Urine Bacteria Many Urine Mucus Not seen Meds: Medications Discontinued Medications Generic Name Dose Route Start Last Admin Trade Name Yarely PRN Reason Stop Dose Admin Sodium Chloride 1,000 mls @ 1,000 mls/hr 11/03/21 10:45 11/03/21 10:51 Normal Saline IV 1,000 mls/hr ASDIRECTED MANFRED Administration Sodium Chloride 100 mls @ 3 mls/sec 11/03/21 11:15 11/03/21 11:29 Normal Saline IV 3 mls/sec ASDIRECTED MANFRED Administration Iopamidol 144 ml 11/03/21 11:10 11/03/21 11:29 Iopamidol 612 Mg/Ml 150 Ml Bottle IV 11/04/21 11:11 144 ml . DIRECTED PRN Administration RADIOLOGY EXAM Sodium Chloride 10 ml 11/03/21 11:10 11/03/21 11:29 Sodium Chloride 0.9% 10 Ml Sdv FLUSH 11/03/21 11:11 10 ml ONETIME ONE Administration - Re-Assessments/Exams Free Text/Narrative Re-Assessment/Exam: 11/03/21 09:45 CBC, CMP and UA were obtained. This patient likely will need a CT of the abdomen and pelvis with IV contrast to assess worsening abdominal pain with possible infiltrative process in the vaginal wall. 11/03/21 10:52 CBC is normal, CMP shows renal insufficiency that is consistent with 2 years ago. She will be bolused with normal saline prior to and IV enhanced CT scan of the abdomen and pelvis. 11/03/21 13:04 IMPRESSION: Mild acute diverticulitis distal descending colon. UA showed many bacteria nitrite positive urine and WBCs. A culture was initiated. The diverticulitis is lying adjacent to the bladder and vaginal wall, there is no mention of mass-effect or erosive lesion on the CT scan. Hopefully if she is treated with antibiotics this will resolve. She was placed on Levaquin 500 mg daily for a full 10 days. She is going to recheck with her primary provider in the next 7 to 10 days and if the vaginal bleeding does not resolve she will would need [employer] consultation. Departure - Departure Time of Disposition: 13:12 Disposition: Home, Self-Care 01 Clinical Impression: Diverticulitis, UTI (urinary tract infection) Abdominal pain Qualifiers: Abdominal location: left lower quadrant Qualified Code(s): R10.32 - Left lower quadrant pain - Discharge Information Instructions: Diverticulitis, [id number] Referrals: Ann Watson PA-C [Primary Care Provider] - Forms: ED Department Discharge Care Plan Goals: Take 1 antibiotic pill right away, a second 1 this evening, then 1 each morning until gone. Return if worsening such as increased bleeding, pain or fever. Otherwise recheck with your primary provider in the next 1 to 2 weeks. Sepsis Event Note (ED) - Evaluation Sepsis Screening Result: No Definite Risk - Focused Exam Vital Signs: Vital Signs Temp Pulse Resp BP Pulse Ox 11/03/21 09:16 95.3 F L 104 H 16 135/79 99 - My Orders Last 24 Hours: My Active Orders 11/03/21 12:45 CULTURE URINE [RM] Stat - Assessment/Plan Last 24 Hours: My Active Orders 11/03/21 12:45 CULTURE URINE [RM] Stat
[2021-11-03] MEDS ORDERED: Sodium Chloride 0.9% 1,000 ML IV SCH (10:45)
[2021-11-03] MEDS ORDERED: Sodium Chloride 0.9% 10 ML SDV FLUSH ONE (11:10)
[2021-11-03] MEDS ORDERED: Iopamidol 612 MG/ML 150 ML Bottle IV PRN (11:10)
[2021-11-03] MEDS ORDERED: Sodium Chloride 0.9% 100 ML IV SCH (11:15)
--- NOTE | 2021-11-03 12:23 | CRLCT ---
For Patients: As a result of the Century Cures Act, medical imaging exams and procedure reports are released immediately into your electronic medical record. You may view this report before your referring provider. If you have questions, please contact your health care provider. HISTORY: Vaginal bleeding with left lower quadrant pain. COMPARISON: 03/30/2019. TECHNIQUE: Axial images were obtained through the abdomen and pelvis following 144 cc of Isovue-300 venous contrast. FINDINGS: The lung bases are clear. Cholecystectomy. Low-attenuation of the liver may represent fatty infiltration. The spleen is normal in size. The pancreas, adrenal glands are within normal. There is a area of low attenuation measuring approximately 1.5 cm in the lateral right kidney with associated mild cortical thinning that appears stable and chronic when compared to the prior study in 2019. No hydronephrosis. The bowel is normal in caliber. There are colonic diverticula with mild inflammatory changes of the distal descending colon consistent with mild acute diverticulitis. No free air or abscess formation. Degenerative changes in the spine. IMPRESSION: Mild acute diverticulitis distal descending colon. Please note that all CT scans at this facility use dose modulation, iterative reconstruction, and/or weight-based dosing when appropriate to reduce radiation dose to as low as reasonably achievable. Dictated by Aletha Raymond MD @ 11/03/2021 12:22:16 PM (Electronically Signed)
== END 2021-11-03 13:00 | disposition home or self-care (01) ==
LOC: JP.ED 09:04
DX: K57.32 Diverticulitis of large intestine without perforation or abscess without bleeding (principal); N39.0 Urinary tract infection, site not specified; I10 Essential (primary) hypertension; E78.00 Pure hypercholesterolemia, unspecified; E11.9 Type 2 diabetes mellitus without complications; E66.9 Obesity, unspecified; Z91.030 Bee allergy status; Z88.2 Allergy status to sulfonamides; Z88.0 Allergy status to penicillin; Z88.1 Allergy status to other antibiotic agents; Z88.8 Allergy status to other drugs, medicaments and biological substances; Z79.899 Other long term (current) drug therapy; Z79.84 Long term (current) use of oral hypoglycemic drugs; Z79.82 Long term (current) use of aspirin; Z68.38 Body mass index [BMI] 38.0-38.9, adult
CPT/HCPCS: 36415; 74177; 80053; 81001; 85025; 87086; 87088; 87186; 99284; J7030; Q9967

== ENCOUNTER 2023-02-07 06:53 | Day surgery (SDC) | payer MEDICARE, MEDICAID ==
[2023-02-07] MEDS ORDERED: Lactated Ringers 1,000 ML IV SCH (07:30)
[2023-02-07] MEDS ORDERED: fentaNYL 100 MCG/2 ML SDV ONE (08:03)
[2023-02-07] MEDS ORDERED: Propofol 200 MG/20 ML SDV ONE (08:03)
[2023-02-07 11:13] VITALS: BP 137/84; PULSE 81
== END 2023-02-07 11:00 | disposition home or self-care (01) ==
LOC: JP.SDS 06:53
PROVIDERS: ATTEND Student in an Organized Health Care Education/Training Program
DX: K21.9 Gastro-esophageal reflux disease without esophagitis (principal); F32.A Depression, unspecified; F43.10 Post-traumatic stress disorder, unspecified; E11.9 Type 2 diabetes mellitus without complications
CPT/HCPCS: 43235; 82947; J2704; J3010; J7120

== ENCOUNTER 2023-02-10 08:01 | Day surgery (SDC) | payer MEDICARE, MEDICAID ==
[2023-02-10] MEDS ORDERED: fentaNYL 50 MCG/ML SDV ONE (08:42)
[2023-02-10] MEDS ORDERED: Propofol 200 MG/20 ML SDV ONE (08:42)
[2023-02-10] MEDS ORDERED: Midazolam 1 MG/ML 2 ML SDV ONE (08:42)
[2023-02-10] MEDS ORDERED: Lactated Ringers 1,000 ML IV SCH (09:00)
[2023-02-10 11:25] VITALS: BP 122/69; PULSE 87
== END 2023-02-10 11:30 | disposition home or self-care (01) ==
LOC: JP.SDS 08:01
PROVIDERS: ATTEND Student in an Organized Health Care Education/Training Program
DX: K29.50 Unspecified chronic gastritis without bleeding (principal); K21.00 Gastro-esophageal reflux disease with esophagitis, without bleeding; K44.9 Diaphragmatic hernia without obstruction or gangrene; E11.22 Type 2 diabetes mellitus with diabetic chronic kidney disease; I12.9 Hypertensive chronic kidney disease with stage 1 through stage 4 chronic kidney disease, or unspecified chronic kidney disease; N18.9 Chronic kidney disease, unspecified; E66.9 Obesity, unspecified; Z88.2 Allergy status to sulfonamides; Z88.0 Allergy status to penicillin; Z88.8 Allergy status to other drugs, medicaments and biological substances; Z91.030 Bee allergy status
CPT/HCPCS: 43239; 82947; 88305; 88342; J2250; J2704; J3010; J7120

== ENCOUNTER 2023-11-21 00:39 | Emergency (ER) | payer MEDICARE, MEDICAID ==
[2023-11-21 00:52] VITALS: BP 160/100; PULSE 80
[2023-11-21 01:44] LABS: CORONAVIRUS COVID-19 NAA NEGATIVE (NEGATIVE); INFLUENZA A NAA NEGATIVE (NEGATIVE); INFLUENZA B NAA NEGATIVE (NEGATIVE); RESPIRATORY SYNCYTIAL VIR NAA NEGATIVE (NEGATIVE)
== END 2023-11-21 02:12 | disposition home or self-care (01) ==
LOC: JP.ED 00:39
DX: J06.9 Acute upper respiratory infection, unspecified (principal); I10 Essential (primary) hypertension; E78.00 Pure hypercholesterolemia, unspecified; E11.9 Type 2 diabetes mellitus without complications; K21.9 Gastro-esophageal reflux disease without esophagitis; Z20.822 Contact with and (suspected) exposure to COVID-19; F17.210 Nicotine dependence, cigarettes, uncomplicated; Z79.82 Long term (current) use of aspirin; Z79.84 Long term (current) use of oral hypoglycemic drugs; Z79.899 Other long term (current) drug therapy; E66.9 Obesity, unspecified; Z68.38 Body mass index [BMI] 38.0-38.9, adult; Z90.49 Acquired absence of other specified parts of digestive tract; Z90.710 Acquired absence of both cervix and uterus; Z91.030 Bee allergy status; Z88.0 Allergy status to penicillin; Z88.2 Allergy status to sulfonamides; Z88.8 Allergy status to other drugs, medicaments and biological substances
CPT/HCPCS: 0241U; 99284

== ENCOUNTER → 2024-07-01 | Day surgery (SDC) | payer MEDICARE, MEDICAID ==
[~2024-07-01] MED LIST changes: +Midazolam 1 MG/ML 2 ML SDV ONE; -Sodium Chloride 0.9% 1,000 ML IV SCH
[2024-07-01] MEDS: Sodium Chloride 0.9% 10 ML Syringe FLUSH PRN (07:31)
[2024-07-01 09:57] VITALS: BP 137/82; PULSE 78
== END ==
LOC: JP.SDS 06:56
PROVIDERS: ATTEND Ophthalmology
DX: E11.36 Type 2 diabetes mellitus with diabetic cataract (principal); H25.11 Age-related nuclear cataract, right eye; I12.9 Hypertensive chronic kidney disease with stage 1 through stage 4 chronic kidney disease, or unspecified chronic kidney disease; E11.22 Type 2 diabetes mellitus with diabetic chronic kidney disease; N18.9 Chronic kidney disease, unspecified; K21.9 Gastro-esophageal reflux disease without esophagitis; G47.33 Obstructive sleep apnea (adult) (pediatric); E66.9 Obesity, unspecified
CPT/HCPCS: 82947; J2250; J3490; V2632

== ENCOUNTER 2024-07-15 08:21 | Day surgery (SDC) | payer MEDICARE, MEDICAID ==
[2024-07-15] MEDS: Sodium Chloride 0.9% 1,000 ML IV SCH (09:15)
[2024-07-15] MEDS ORDERED: Sodium Chloride 0.9% 10 ML Syringe FLUSH PRN (09:30)
[2024-07-15 10:31] VITALS: BP 143/85; PULSE 74
== END 2024-07-15 10:55 | disposition home or self-care (01) ==
LOC: JP.SDS 08:21
PROVIDERS: ATTEND Ophthalmology
DX: H25.12 Age-related nuclear cataract, left eye (principal)
CPT/HCPCS: 66984; 82947; J2250; J7030; V2632